=== PATIENT | female | born 1970 | race Caucasian/White ===

== ENCOUNTER 2017-07-13 21:53 | Inpatient (IN) | payer MEDICARE, OTHER ==
[~2017-07-13] VITALS: Ht 165.1 cm; Wt 56.2 kg
[~2017-07-13 21:53] MED LIST: COPAXONE; HUMALOG; HYDR-3326 PO; INSU100V7 SQ; [UNRECOGNIZED DRUG - OTHER]; [UNRECOGNIZED DRUG - REMARK]; [UNRECOGNIZED DRUG - REMARK]; [UNRECOGNIZED DRUG - REMARK] PO
[2017-07-13] MEDS ORDERED: ONDANSETRON 4 MG/2 ML VIAL IV ONE ×2 (22:30→23:45)
[2017-07-13] MEDS ORDERED: HYDROMORPHONE 1 MG/1 ML DISP.SYRIN IV ONE ×2 (22:30→23:45)
[2017-07-13] MEDS ORDERED: IV NORMAL SALINE 1000 ML BAG IV ONE (22:30)
[2017-07-13] MEDS ORDERED: ONDANSETRON 4 MG/2 ML VIAL ONE (22:45)
[2017-07-13] MEDS ORDERED: HYDROMORPHONE 2 MG/1 ML DISP.SYRIN ONE (22:45)
[2017-07-13 23:11] LABS: *BILIRUBIN,URIN NEGATIVE (NEGATIVE); *BLOOD, URINE 2+ (NEGATIVE); *CLARITY,URINE TURBID (CLEAR); *COLOR,URINE YELLOW (YELLOW); *KETONES,URINE NEGATIVE (NEGATIVE); *PROTEIN,URINE 2+ (NEGATIVE); *UROBILINOGEN,URINE 0.2 E.U./dl (NORMAL); LEUKOCYTE ESTERASE ,URINE 3+ (NEGATIVE); NITRITE, URINE POSITIVE (NEGATIVE); PH,URINE 5.5 (5.0-8.0); UGLUCOSE NEGATIVE (NEGATIVE)
[2017-07-13 23:27] LABS: BASOPHILS # (AUTO) 0.1 K/uL (0.0-8.0); BASOPHILS % (AUTO) 0.4 % (0.0-2.0); EOSINOPHILS # (AUTO) 0.4 K/uL (0.0-0.7); EOSINOPHILS % (AUTO) 2.2 % (0.0-7.0); HEMATOCRIT 37.8 % (31.2-41.9); HEMOGLOBIN 12.5 g/dL (10.9-14.3); LYMPHOCYTES # (AUTO) 2.3 K/uL (20.0-40.0); LYMPHOCYTES % (AUTO) 13.8 % (20.5-51.5); MEAN CORPUSCULAR HEMOGLOBIN 30.8 uug (24.7-32.8); MEAN CORPUSCULAR HGB CONC 33 g/dL (32.3-35.6); MEAN CORPUSCULAR VOLUME 93.3 fL (75.5-95.3); MONOCYTES # (AUTO) 1.6 K/uL (2.0-10.0); MONOCYTES % (AUTO) 9.5 % (0.0-11.0); NEUTROPHILS # (AUTO) 12.4 K/uL (1.8-8.9); NEUTROPHILS % (AUTO) 74.1 % (38.5-71.5); PLATELET COUNT (AUTO) 263 K/uL (179-408); RED BLOOD CELL COUNT(AUTO) 4.05 MIL/uL (3.63-4.92); WHITE BLOOD COUNT (AUTO) 16.7 K/uL (3.8-11.8)
[2017-07-13 23:28] LABS: BILIRUBIN,DIRECT 0.1 mg/dL (0.0-0.2); BILIRUBIN,TOTAL 0.3 mg/dL (0.2-1.0); CREATININE 1.6 mg/dL (0.6-1.3); POTASSIUM 4.6 mmol/L (3.5-5.1); TOTAL PROTEIN, SERUM 6.3 g/dL (6.4-8.2)
[2017-07-13] MEDS ORDERED: IV DEXTROSE 5% 500 ML BAG IV ONE (23:30)
[2017-07-13 23:35] LABS: BACTERIA,URINE MANY /HPF (NONE SEEN); SQUAMOUS EPITHELIAL CELL,UR FEW /HPF (NONE SEEN); WBC,URINE TNTC /HPF (0-3)
[2017-07-13] MEDS ORDERED: DEXTROSE 50% 50 ML DISP.SYRIN ONE (23:36)
[2017-07-13] MEDS ORDERED: CEFTRIAXONE 1 G in IV DEXTROSE 5% 50 ML IV ONE (23:45)
[2017-07-13] MEDS ORDERED: diphenhydrAMINE 50 MG/1 ML VIAL IV ONE (23:45)
[2017-07-13] MEDS ORDERED: LEVOFLOXACIN 500 MG/D5W 100ML PIGGYBACK IV ONE (23:45)
[2017-07-14] MEDS ORDERED: diphenhydrAMINE 50 MG/1 ML VIAL ONE (00:01)
[2017-07-14] MEDS ORDERED: ONDANSETRON 4 MG/2 ML VIAL ONE ×2 (00:02→06:26)
[2017-07-14] MEDS ORDERED: CEFTRIAXONE 1 G VIAL ONE (00:02)
[2017-07-14] MEDS ORDERED: HYDROMORPHONE 2 MG/1 ML DISP.SYRIN ONE ×2 (00:03→04:22)
[2017-07-14] MEDS ORDERED: LEVOFLOXACIN 500 MG/D5W 100 ML ONE (01:12)
[2017-07-14 02:06] VITALS: BP 105/68
[2017-07-14] MEDS ORDERED: HYDROCODONE/APAP 5-325MG TABLET PO PRN (02:45)
[2017-07-14] MEDS ORDERED: ACETAMINOPHEN 325 MG TABLET PO PRN (02:45)
[2017-07-14] MEDS ORDERED: MAGNESIUM HYDROXIDE 30 ML LIQUID UDC PO PRN (02:45)
[2017-07-14] MEDS ORDERED: ENOXAPARIN SODIUM 40 MG/0.4 ML DISP.SYRIN SQ SCH (02:45)
[2017-07-14] MEDS ORDERED: ZOLPIDEM 5 MG TABLET PO PRN (02:45)
[2017-07-14] MEDS ORDERED: Z GUARD REMEDY PASTE 57 GM TUBE TOP PRN (02:45)
[2017-07-14] MEDS ORDERED: DEXTROSE 50% 50 ML DISP.SYRIN IV PRN (02:45)
[2017-07-14] MEDS ORDERED: CEFTRIAXONE 1 G in IV DEXTROSE 5% 50 ML IV SCH (03:00)
[2017-07-14] MEDS ORDERED: ENOXAPARIN SODIUM 40 MG/0.4 ML DISP.SYRIN SQ ONE (03:53)
[2017-07-14] MEDS ORDERED: HYDROMORPHONE 1 MG/1 ML DISP.SYRIN IV PRN (04:00)
[2017-07-14] MEDS ORDERED: HYDROCODONE/APAP 5-325MG TABLET ONE (04:10)
[2017-07-14 05:45] VITALS: BP 104/54
[2017-07-14] MEDS: IV NS 1000 ML 1,000 ML IV PRN ×2 (06:07→19:59)
[2017-07-14] MEDS: ONDANSETRON 4 MG/2 ML VIAL IV PRN ×3 (06:13→19:58)
[2017-07-14] MEDS: BLOOD SUGAR DIAGNOSTIC 1 EACH STRIP VI SCH ×4 (06:37→20:05)
[2017-07-14] MEDS ORDERED: INSULIN DETEMIR 300 UNIT/3 ML CARTRIDGE SQ SCH ×2 (09:00→21:00)
[2017-07-14 11:30] VITALS: BP 110/52
[2017-07-14] MEDS: HYDROMORPHONE 2 MG/1 ML DISP.SYRIN IV PRN ×3 (11:50→21:36)
[2017-07-14] MEDS ORDERED: DOXY100C41 PO (12:52)
[2017-07-14] MEDS ORDERED: METO-304 PO (12:52)
[2017-07-14] MEDS ORDERED: CLON1TAB4 PO ×2 (12:52)
[2017-07-14] MEDS ORDERED: ROSU5TAB PO (12:52)
[2017-07-14] MEDS ORDERED: MODA100T29 PO (12:52)
[2017-07-14] MEDS ORDERED: BUPR200T PO (12:52)
[2017-07-14] MEDS ORDERED: TOPI100T38 PO (12:52)
[2017-07-14] MEDS ORDERED: DEXILANT PO (13:21)
[2017-07-14] MEDS: diphenhydrAMINE 50 MG/1 ML VIAL IV PRN ×2 (14:41→21:35)
[2017-07-14 15:40] VITALS: BP 110/66
[2017-07-14] MEDS ORDERED: INSULIN GLARGINE,HUM 300 UNITS/3 ML CARTRIDGE SQ SCH (17:00)
[2017-07-14] MEDS ORDERED: GLAT20SY SQ (17:18)
[2017-07-14] MEDS: PATIENT MAY USE OWN MED- MD OK SQ SCH (17:38)
[2017-07-14] MEDS: LANTUS SQ SCH (17:42)
[2017-07-14] MEDS: INSULIN REGULAR, HUMAN 300 UNIT/3 ML VIAL SQ PRN (18:08)
[2017-07-14] MEDS: CLONAZEPAM 1 MG TABLET PO PRN (19:58)
[2017-07-14] MEDS: DEXILANT PO SCH (19:58)
[2017-07-14] MEDS: buPROPion SR 100 MG TABLET.SA PO SCH (19:58)
[2017-07-14 20:07] VITALS: BP 95/52
[2017-07-14] MEDS: INSULIN REGULAR, HUMAN 300 UNITS/3 ML VIAL SQ PRN (20:10)
[2017-07-14] MEDS ORDERED: buPROPion SR 100 MG TABLET.SA PO SCH (21:00)
[2017-07-15 00:22] VITALS: BP 169/85
[2017-07-15] MEDS: ONDANSETRON 4 MG/2 ML VIAL IV PRN ×2 (01:45→16:36)
[2017-07-15] MEDS: HYDROMORPHONE 2 MG/1 ML DISP.SYRIN IV PRN ×5 (01:46→21:43)
[2017-07-15 04:56] VITALS: BP 95/57
[2017-07-15] MEDS: diphenhydrAMINE 50 MG/1 ML VIAL IV PRN ×3 (05:39→21:38)
[2017-07-15 06:21] LABS: BASOPHILS % (AUTO) 0.2 % (0.0-2.0); EOSINOPHILS # (AUTO) 0.1 K/uL (0.0-0.7); EOSINOPHILS % (AUTO) 1.3 % (0.0-7.0); HEMOGLOBIN 11.3 g/dL (10.9-14.3); LYMPHOCYTES # (AUTO) 1.7 K/uL (20.0-40.0); LYMPHOCYTES % (AUTO) 16.6 % (20.5-51.5); MEAN CORPUSCULAR HEMOGLOBIN 30.6 uug (24.7-32.8); MEAN CORPUSCULAR HGB CONC 32 g/dL (32.3-35.6); MEAN CORPUSCULAR VOLUME 95.3 fL (75.5-95.3); MONOCYTES # (AUTO) 1.1 K/uL (2.0-10.0); MONOCYTES % (AUTO) 10.6 % (0.0-11.0); NEUTROPHILS # (AUTO) 7.1 K/uL (1.8-8.9); NEUTROPHILS % (AUTO) 71.3 % (38.5-71.5); PLATELET COUNT (AUTO) 247 K/uL (179-408); RED BLOOD CELL COUNT(AUTO) 3.68 MIL/uL (3.63-4.92)
[2017-07-15] MEDS: DEXILANT PO SCH (06:22)
[2017-07-15] MEDS: BLOOD SUGAR DIAGNOSTIC 1 EACH STRIP VI SCH ×4 (06:24→20:35)
[2017-07-15 06:51] LABS: BILIRUBIN,TOTAL 0.4 mg/dL (0.2-1.0); CREATININE 1.6 mg/dL (0.6-1.3); MAGNESIUM 1.6 mg/dL (1.8-2.4); PHOSPHOROUS 3.4 mg/dL (2.5-4.9); POTASSIUM 5.1 mmol/L (3.5-5.1); TOTAL PROTEIN, SERUM 5.2 g/dL (6.4-8.2)
[2017-07-15 06:58] LABS: THYROID STIMULATING HORMONE 2.396 mIU/mL (0.358-3.740)
[2017-07-15] MEDS: INSULIN REGULAR, HUMAN 300 UNIT/3 ML VIAL SQ PRN ×3 (07:45→16:27)
[2017-07-15] MEDS: CEFTRIAXONE 1 G in IV DEXTROSE 5% 50 ML IV SCH (08:35)
[2017-07-15] MEDS: buPROPion SR 100 MG TABLET.SA PO SCH ×2 (08:36→16:23)
[2017-07-15] MEDS: CLONAZEPAM 1 MG TABLET PO PRN (08:44)
[2017-07-15] MEDS ORDERED: BUPROPION HCL 400 MG PO SCH (09:00)
[2017-07-15] MEDS ORDERED: ENOXAPARIN SODIUM 40 MG/0.4 ML DISP.SYRIN SQ SCH (09:00)
[2017-07-15] MEDS: PATIENT MAY USE OWN MED- MD OK SQ SCH (09:26)
[2017-07-15] MEDS: LANTUS SQ SCH ×2 (09:27→16:23)
[2017-07-15] MEDS: IV NS 1000 ML 1,000 ML IV PRN ×2 (10:03→23:51)
[2017-07-15] MEDS ORDERED: MAGNESIUM OXIDE 400 MG TABLET PO ONE (10:15)
[2017-07-15 11:04] VITALS: BP 103/59
[2017-07-15 14:58] VITALS: BP 98/59
[2017-07-15] MEDS: TOPIRAMATE 100 MG TABLET PO SCH (16:23)
[2017-07-15] MEDS ORDERED: CLONAZEPAM 1 MG TABLET PO SCH (17:14)
[2017-07-15 20:00] VITALS: BP 95/55
[2017-07-15] MEDS ORDERED: NYSTATIN CREAM 30 GM TUBE TOP SCH (21:00)
[2017-07-15] MEDS: FLUCONAZOLE 100 MG TABLET PO SCH (21:27)
[2017-07-15] MEDS: MICONAZOLE NITRATE 2% VAG CREA 45 GM TUBE VG SCH (22:11)
[2017-07-16 06:38] VITALS: BP 105/59
[2017-07-16] MEDS: BLOOD SUGAR DIAGNOSTIC 1 EACH STRIP VI SCH ×5 (06:43→21:19)
[2017-07-16] MEDS: DEXILANT PO SCH (07:00)
[2017-07-16] MEDS: INSULIN REGULAR, HUMAN 300 UNIT/3 ML VIAL SQ PRN ×2 (07:54→11:49)
[2017-07-16] MEDS: CEFTRIAXONE 1 G in IV DEXTROSE 5% 50 ML IV SCH (08:07)
[2017-07-16] MEDS: TOPIRAMATE 100 MG TABLET PO SCH (08:07)
[2017-07-16] MEDS: ONDANSETRON 4 MG/2 ML VIAL IV PRN ×2 (08:08→21:39)
[2017-07-16] MEDS: buPROPion SR 100 MG TABLET.SA PO SCH ×2 (08:08→17:00)
[2017-07-16] MEDS: FLUCONAZOLE 100 MG TABLET PO SCH (08:08)
[2017-07-16] MEDS: HYDROMORPHONE 2 MG/1 ML DISP.SYRIN IV PRN ×3 (08:09→21:38)
[2017-07-16] MEDS: LANTUS SQ SCH ×2 (08:16→17:00)
[2017-07-16] MEDS: PATIENT MAY USE OWN MED- MD OK SQ SCH (08:25)
[2017-07-16 08:54] LABS: BASOPHILS % (AUTO) 0.3 % (0.0-2.0); EOSINOPHILS # (AUTO) 0.2 K/uL (0.0-0.7); EOSINOPHILS % (AUTO) 2.2 % (0.0-7.0); HEMATOCRIT 35.5 % (37-47); HEMOGLOBIN 11.2 G/DL (12.0-16.0); LYMPHOCYTES % (AUTO) 24.5 % (20.5-51.5); MEAN CORPUSCULAR HEMOGLOBIN 30.1 UUG (27.0-31.0); MEAN CORPUSCULAR HGB CONC 32 g/dL (32.0-37.0); MONOCYTES # (AUTO) 0.6 K/UL (0.1-1.30); NEUTROPHILS # (AUTO) 5.3 K/UL (1.8-8.9); PLATELET COUNT (AUTO) 293 K/UL (150-450); RED BLOOD CELL COUNT(AUTO) 3.73 MIL/UL (4.2-5.4); WHITE BLOOD COUNT (AUTO) 8.1 K/UL (4.0-11.2)
[2017-07-16 10:06] VITALS: BP 104/65
[2017-07-16 10:15] LABS: CREATININE 1.9 mg/dL (0.6-1.3); MAGNESIUM 1.8 mg/dL (1.8-2.4); POTASSIUM 4.7 mmol/L (3.5-5.1)
[2017-07-16] MEDS: CLONAZEPAM 1 MG TABLET PO PRN (11:51)
[2017-07-16] MEDS: IV NS 1000 ML 1,000 ML IV PRN (14:10)
[2017-07-16 17:10] VITALS: BP 133/78
[2017-07-16 20:13] VITALS: BP 99/51
[2017-07-16] MEDS ORDERED: MICONAZOLE NITRATE 2% VAG CREA 45 GM TUBE VG SCH (21:00)
[2017-07-16] MEDS: MICONAZOLE NITRATE 2% VAG CREA 45 GM TUBE VG SCH (21:17)
[2017-07-16] MEDS: diphenhydrAMINE 50 MG/1 ML VIAL IV PRN (21:39)
[2017-07-16] MEDS: INSULIN REGULAR, HUMAN 300 UNITS/3 ML VIAL SQ PRN (21:48)
[2017-07-17] MEDS: IV NS 1000 ML 1,000 ML IV PRN (04:22)
[2017-07-17 04:35] VITALS: BP 109/57
[2017-07-17] MEDS: DEXILANT PO SCH (06:30)
[2017-07-17] MEDS: BLOOD SUGAR DIAGNOSTIC 1 EACH STRIP VI SCH ×3 (06:33→16:42)
[2017-07-17] MEDS: HYDROMORPHONE 2 MG/1 ML DISP.SYRIN IV PRN ×3 (06:59→16:10)
[2017-07-17] MEDS: ONDANSETRON 4 MG/2 ML VIAL IV PRN ×2 (06:59→15:02)
[2017-07-17] MEDS: diphenhydrAMINE 50 MG/1 ML VIAL IV PRN (06:59)
[2017-07-17 07:54] LABS: CREATININE 1.5 mg/dL (0.6-1.3); POTASSIUM 5.1 mmol/L (3.5-5.1)
[2017-07-17 07:59] LABS: BASOPHILS % (AUTO) 0.4 % (0.0-2.0); EOSINOPHILS # (AUTO) 0.2 K/uL (0.0-0.7); EOSINOPHILS % (AUTO) 2.5 % (0.0-7.0); HEMATOCRIT 36.3 % (31.2-41.9); HEMOGLOBIN 11.7 g/dL (10.9-14.3); LYMPHOCYTES # (AUTO) 1.7 K/uL (20.0-40.0); MEAN CORPUSCULAR HEMOGLOBIN 30.6 uug (24.7-32.8); MEAN CORPUSCULAR HGB CONC 32 g/dL (32.3-35.6); MEAN CORPUSCULAR VOLUME 94.4 fL (75.5-95.3); MONOCYTES # (AUTO) 0.4 K/uL (2.0-10.0); MONOCYTES % (AUTO) 7.3 % (0.0-11.0); NEUTROPHILS # (AUTO) 3.9 K/uL (1.8-8.9); NEUTROPHILS % (AUTO) 62.8 % (38.5-71.5); PLATELET COUNT (AUTO) 288 K/uL (179-408); RED BLOOD CELL COUNT(AUTO) 3.84 MIL/uL (3.63-4.92); WHITE BLOOD COUNT (AUTO) 6.2 K/uL (3.8-11.8)
[2017-07-17] MEDS: LANTUS SQ SCH ×2 (08:26→17:10)
[2017-07-17] MEDS: INSULIN REGULAR, HUMAN 300 UNITS/3 ML VIAL SQ PRN (08:26)
[2017-07-17] MEDS: buPROPion SR 100 MG TABLET.SA PO SCH ×2 (08:35→17:09)
[2017-07-17] MEDS: TOPIRAMATE 100 MG TABLET PO SCH (08:36)
[2017-07-17] MEDS: FLUCONAZOLE 100 MG TABLET PO SCH (08:36)
[2017-07-17] MEDS: CEFTRIAXONE 1 G in IV DEXTROSE 5% 50 ML IV SCH (08:37)
[2017-07-17] MEDS: CLONAZEPAM 1 MG TABLET PO PRN (08:38)
[2017-07-17] MEDS: PATIENT MAY USE OWN MED- MD OK SQ SCH (09:00)
[2017-07-17] MEDS ORDERED: HYDR-548 PO (10:38)
[2017-07-17] MEDS ORDERED: LEVO500T90 PO (10:38)
[2017-07-17 11:17] VITALS: BP 102/49
[2017-07-17] MEDS: INSULIN REGULAR, HUMAN 300 UNIT/3 ML VIAL SQ PRN ×2 (11:57→16:44)
[2017-07-17 15:54] VITALS: BP 98/54
== END 2017-07-17 17:30 | disposition home or self-care (01) | DRG 871 ==
LOC: ER 21:55 → MED 07-14 01:14
PROVIDERS: ADMIT Internal Medicine; ATTEND Internal Medicine
DX: A41.9 Sepsis, unspecified organism (principal); N17.0 Acute kidney failure with tubular necrosis; N12 Tubulo-interstitial nephritis, not specified as acute or chronic; N39.0 Urinary tract infection, site not specified; G35 Multiple sclerosis; F32.9 Major depressive disorder, single episode, unspecified; I12.9 Hypertensive chronic kidney disease with stage 1 through stage 4 chronic kidney disease, or unspecified chronic kidney disease; N18.9 Chronic kidney disease, unspecified; G89.4 Chronic pain syndrome; Z87.11 Personal history of peptic ulcer disease; Z87.440 Personal history of urinary (tract) infections; Z87.891 Personal history of nicotine dependence; F41.9 Anxiety disorder, unspecified; B96.20 Unspecified Escherichia coli [E. coli] as the cause of diseases classified elsewhere; E10.22 Type 1 diabetes mellitus with diabetic chronic kidney disease; E10.42 Type 1 diabetes mellitus with diabetic polyneuropathy; Z79.4 Long term (current) use of insulin; K29.50 Unspecified chronic gastritis without bleeding; Z91.81 History of falling
CPT/HCPCS: 36415; 73590; 76770; 83735; 84100; 84443; 84703; 85025; 87040; 87077; 87086; A4663; J0696; J1170; J1200; J1650; J1815; J1956; J2405; J3490; J7030; J7060

== ENCOUNTER 2017-10-03 16:37 | Emergency (ER) | payer MEDICARE, OTHER ==
[~2017-10-03] VITALS: Ht 162.6 cm; Wt 51.3 kg
[~2017-10-03 16:37] MED LIST changes: +BUPR200T PO; +CLON1TAB4 PO; -COPAXONE; +DEXILANT PO; +GLAT20SY SQ; +HYDR-548 PO; +LEVO500T90 PO; +METO-357 PO; +MODA100T29 PO; +ROSU5TAB PO; +TOPI100T38 PO; -[UNRECOGNIZED DRUG - OTHER]; -[UNRECOGNIZED DRUG - REMARK]; -[UNRECOGNIZED DRUG - REMARK]; -[UNRECOGNIZED DRUG - REMARK] PO
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
[2017-10-03 19:07] VITALS: BP 110/79
== END 2017-10-03 19:08 | disposition home or self-care (01) ==
LOC: ER 16:39
DX: S92.532A Displaced fracture of distal phalanx of left lesser toe(s), initial encounter for closed fracture (principal); E10.9 Type 1 diabetes mellitus without complications; G35 Multiple sclerosis; Z79.4 Long term (current) use of insulin; Z88.1 Allergy status to other antibiotic agents; Z88.5 Allergy status to narcotic agent; Z90.49 Acquired absence of other specified parts of digestive tract; X58.XXXA Exposure to other specified factors, initial encounter; Y93.89 Activity, other specified; Y92.89 Other specified places as the place of occurrence of the external cause; Y99.8 Other external cause status
CPT/HCPCS: 73630; A4663

== ENCOUNTER 2017-11-26 09:59 | Emergency (ER) | payer OTHER ==
[~2017-11-26] VITALS: Ht 162.6 cm; Wt 52.2 kg
[2017-11-26 10:33] LABS: *BILIRUBIN,URIN NEGATIVE (NEGATIVE); *BLOOD, URINE 2+ (NEGATIVE); *CLARITY,URINE TURBID (CLEAR); *COLOR,URINE YELLOW (YELLOW); *KETONES,URINE NEGATIVE (NEGATIVE); *PROTEIN,URINE 2+ (NEGATIVE); *UROBILINOGEN,URINE 0.2 E.U./dl (NORMAL); LEUKOCYTE ESTERASE ,URINE 2+ (NEGATIVE); NITRITE, URINE NEGATIVE (NEGATIVE); PH,URINE 5.5 (5.0-8.0); UGLUCOSE NEGATIVE (NEGATIVE)
[2017-11-26 10:44] LABS: BACTERIA,URINE MODERATE /HPF (NONE SEEN); SQUAMOUS EPITHELIAL CELL,UR FEW /HPF (NONE SEEN); WBC,URINE TNTC /HPF (0-3)
[2017-11-26] MEDS ORDERED: IV NORMAL SALINE 1000 ML BAG IV ONE (10:45)
[2017-11-26] MEDS ORDERED: GENTAMICIN SULFATE INJ 80 MG in IV DEXTROSE 5% 100 ML IV ONE (10:45)
[2017-11-26] MEDS ORDERED: CEFEPIME HCL 1 G in IV DEXTROSE 5% 50 ML IV ONE (10:45)
[2017-11-26] MEDS ORDERED: KETAMINE HCL 500 MG/10 ML INJ IV ONE ×2 (10:45→13:30)
[2017-11-26 11:02] LABS: BASOPHILS # (AUTO) 0.1 K/uL (0.0-8.0); BASOPHILS % (AUTO) 0.4 % (0.0-2.0); EOSINOPHILS # (AUTO) 0.3 K/uL (0.0-0.7); EOSINOPHILS % (AUTO) 2.1 % (0.0-7.0); HEMATOCRIT 36.3 % (31.2-41.9); HEMOGLOBIN 12.1 g/dL (10.9-14.3); LYMPHOCYTES # (AUTO) 2.5 K/uL (20.0-40.0); LYMPHOCYTES % (AUTO) 19.4 % (20.5-51.5); MEAN CORPUSCULAR HEMOGLOBIN 30.9 uug (24.7-32.8); MEAN CORPUSCULAR HGB CONC 33 g/dL (32.3-35.6); MONOCYTES # (AUTO) 1.8 K/uL (2.0-10.0); MONOCYTES % (AUTO) 13.5 % (0.0-11.0); NEUTROPHILS # (AUTO) 8.4 K/uL (1.8-8.9); NEUTROPHILS % (AUTO) 64.6 % (38.5-71.5); PLATELET COUNT (AUTO) 309 K/uL (179-408); RED BLOOD CELL COUNT(AUTO) 3.91 MIL/uL (3.63-4.92)
[2017-11-26] MEDS ORDERED: KETAMINE HCL 500 MG/10 ML INJ ONE (11:03)
[2017-11-26] MEDS ORDERED: GENTAMICIN SULFATE 80 MG/2 ML VIAL ONE (11:03)
[2017-11-26] MEDS ORDERED: CEFEPIME HCL 1 G VIAL ONE (11:04)
[2017-11-26 11:07] LABS: CREATININE 1.3 mg/dL (0.6-1.3); POTASSIUM 4.1 mmol/L (3.5-5.1)
[2017-11-26 11:20] LABS: BILIRUBIN,DIRECT 0.1 mg/dL (0.0-0.2); BILIRUBIN,TOTAL 0.2 mg/dL (0.2-1.0); TOTAL PROTEIN, SERUM 5.9 g/dL (6.4-8.2)
[2017-11-26] MEDS ORDERED: BUPR150T5 PO (11:47)
[2017-11-26] MEDS ORDERED: ARIP2TAB3 PO (11:47)
--- NOTE | 2017-11-26 12:44 | NUR ---
PT AMBULATED TO BATH ROOM, REPORTS LOOSE BM FOE THE LAST 2 DAYS. MD NOTIFIED.
[2017-11-26] MEDS ORDERED: DIPHENOXYLATE HCL/ATROP SULF TABLET PO ONE (13:30)
[2017-11-26] MEDS ORDERED: DIPHENOXYLATE HCL/ATROP SULF TABLET ONE (13:33)
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
--- NOTE | 2017-11-26 14:50 | NUR ---
PT RESTING COMFORTABLY WITH EYES CLOSED.
--- NOTE | 2017-11-26 17:00 | NUR ---
TOTAL OF 25 MG OF KETAMIN GIVEN TO PT PER MD ORDER. 475 MG WASTED WITNESSED BY ROSI MONTESINOS.
--- NOTE | 2017-11-26 17:00 | NUR ---
TOTAL OF 25 MG OF KETAMINE GIVEN TO PT PER MD ORDER. 475 MG WASTED WITNESSED BY AKASH MONTESINOS.
[2017-11-26 17:05] VITALS: BP 98/56
--- NOTE | 2017-11-26 17:06 | NUR ---
Patient discharged to home in stable conditon. Written and verbal after care instructions given. Patient verbalizes understanding of instructions. Pt left ER walking in steady gait and denies any distress. She says she has a ride who will pick her up.
[2017-11-26 22:19] LABS: *BILIRUBIN,URIN NEGATIVE (NEGATIVE); *BLOOD, URINE 2+ (NEGATIVE); *CLARITY,URINE CLOUDY (CLEAR); *COLOR,URINE YELLOW (YELLOW); *KETONES,URINE NEGATIVE (NEGATIVE); *PROTEIN,URINE 2+ (NEGATIVE); *UROBILINOGEN,URINE 0.2 E.U./dl (NORMAL); LEUKOCYTE ESTERASE ,URINE 3+ (NEGATIVE); NITRITE, URINE NEGATIVE (NEGATIVE); UGLUCOSE NEGATIVE (NEGATIVE)
[2017-11-26 22:37] LABS: WBC,URINE 80-100 /HPF (0-3)
[2017-11-26 22:38] LABS: BACTERIA,URINE MANY /HPF (NONE SEEN); SQUAMOUS EPITHELIAL CELL,UR MODERATE /HPF (NONE SEEN)
== END 2017-11-26 17:07 | disposition home or self-care (01) ==
LOC: ER 09:59
DX: N12 Tubulo-interstitial nephritis, not specified as acute or chronic (principal); E11.9 Type 2 diabetes mellitus without complications; Z88.1 Allergy status to other antibiotic agents; Z88.5 Allergy status to narcotic agent; Z79.891 Long term (current) use of opiate analgesic; Z79.4 Long term (current) use of insulin; Z79.2 Long term (current) use of antibiotics; Z79.899 Other long term (current) drug therapy
CPT/HCPCS: 36415; 70030-TC; 71045; 76856; 83605; 84703; 85025; 85730; 87040; 87077; 87086; 93005; A4663; J0692; J1580; J3490; J7030

== ENCOUNTER 2018-02-14 17:32 | Emergency (ER) | payer OTHER ==
[~2018-02-14] VITALS: Ht 162.6 cm; Wt 51.3 kg
[~2018-02-14 17:32] MED LIST changes: +ARIP2TAB3 PO; +BUPR150T5 PO; -BUPR200T PO; -CLON1TAB4 PO; -HYDR-548 PO; -LEVO500T90 PO
--- NOTE | 2018-02-14 19:03 | NUR ---
SBAR REPORT TO JASPREET MONTESINOS
--- NOTE | 2018-02-14 19:25 | NUR ---
Dr. Ardon at bedside for MSE.
[2018-02-14] MEDS ORDERED: HYDROMORPHONE 1 MG/1 ML DISP.SYRIN IM ONE (19:45)
[2018-02-14] MEDS ORDERED: ONDANSETRON ODT 4 MG TAB.RAPDIS SL ONE (19:45)
[2018-02-14] MEDS ORDERED: HYDROMORPHONE 1 MG/1 ML DISP.SYRIN IV ONE ×2 (19:45→21:30)
[2018-02-14] MEDS ORDERED: ONDANSETRON ODT 4 MG TAB.RAPDIS ONE (19:48)
[2018-02-14] MEDS ORDERED: HYDROMORPHONE 2 MG/1 ML DISP.SYRIN ONE ×2 (19:48→21:35)
--- NOTE | 2018-02-14 19:55 | NUR ---
Pt out of ER for CT.
--- NOTE | 2018-02-14 20:15 | NUR ---
Patient back to ER from CT.
[2018-02-14] MEDS ORDERED: KETOROLAC TROMETHAMINE 30 MG INJ ONE (21:24)
[2018-02-14] MEDS ORDERED: KETOROLAC TROMETHAMINE 30 MG INJ IVP ONE (21:30)
--- NOTE | 2018-02-14 21:55 | NUR ---
Patient discharged to home in stable conditon. Written and verbal after care instructions given. Patient verbalizes understanding of instructions. Patient out of ER with steady gait, no acute signs of distress, VSS, all belongings taken, IV site discontinued.
[2018-02-14 22:05] VITALS: BP 100/71
== END 2018-02-14 22:06 | disposition home or self-care (01) ==
LOC: ER 17:33
DX: M25.512 Pain in left shoulder (principal); E11.9 Type 2 diabetes mellitus without complications; Z88.1 Allergy status to other antibiotic agents; Z88.5 Allergy status to narcotic agent; Z79.891 Long term (current) use of opiate analgesic; Z79.4 Long term (current) use of insulin; Z79.899 Other long term (current) drug therapy
CPT/HCPCS: 71250; 73000; 73030; A4663; J1170; J1885; Q0162

== ENCOUNTER 2019-07-06 09:34 | Emergency (ER) | payer OTHER, MEDICAID ==
[~2019-07-06] VITALS: Ht 162.6 cm; Wt 53.1 kg
--- NOTE | 2019-07-06 09:41 | NUR ---
Dr Kemp at the [facility] for MSE.
[2019-07-06 09:51] VITALS: BP 109/66
--- NOTE | 2019-07-06 09:51 | NUR ---
Patient discharged to home in stable conditon. Written and verbal after care instructions given. Patient verbalizes understanding of instructions.
== END 2019-07-06 09:55 | disposition home or self-care (01) ==
LOC: ER 09:34
DX: M79.674 Pain in right toe(s) (principal); L08.9 Local infection of the skin and subcutaneous tissue, unspecified; E10.9 Type 1 diabetes mellitus without complications; F32.9 Major depressive disorder, single episode, unspecified; Z88.5 Allergy status to narcotic agent; Z88.1 Allergy status to other antibiotic agents; Z79.899 Other long term (current) drug therapy; Z79.4 Long term (current) use of insulin
CPT/HCPCS: A4663

== ENCOUNTER 2019-09-26 18:09 | Emergency (ER) | payer OTHER, MEDICAID ==
[~2019-09-26] VITALS: Ht 162.6 cm; Wt 52.2 kg
--- NOTE | 2019-09-26 18:40 | NUR ---
Dr Sorto is at bedside, MSE in progress
[2019-09-26 18:44] LABS: *BILIRUBIN,URIN NEGATIVE (NEGATIVE); *BLOOD, URINE 2+ (NEGATIVE); *CLARITY,URINE CLOUDY (CLEAR); *COLOR,URINE YELLOW (YELLOW); *KETONES,URINE NEGATIVE (NEGATIVE); *UROBILINOGEN,URINE 0.2 E.U./dl (NORMAL); NITRITE, URINE POSITIVE (NEGATIVE); PH,URINE 5.5 (5.0-8.0); UGLUCOSE 2+ (NEGATIVE)
[2019-09-26] MEDS ORDERED: HYDROMORPHONE HCL 2 MG TABLET PO ONE ×3 (18:45→21:15)
[2019-09-26] MEDS ORDERED: ONDANSETRON 4 MG/2 ML VIAL IV ONE (18:45)
[2019-09-26] MEDS ORDERED: IV NORMAL SALINE 1000 ML BAG IV ONE (18:45)
[2019-09-26 18:46] LABS: *URINE HCG, QUAL NEGATIVE (NEGATIVE)
[2019-09-26 18:52] LABS: LEUKOCYTE ESTERASE ,URINE 2+ (NEGATIVE)
[2019-09-26] MEDS ORDERED: ONDANSETRON 4 MG/2 ML VIAL ONE (18:52)
[2019-09-26] MEDS ORDERED: HYDROMORPHONE HCL 2 MG TABLET ONE ×3 (18:52→21:17)
[2019-09-26 18:53] LABS: BACTERIA,URINE MANY /HPF (NONE SEEN); SQUAMOUS EPITHELIAL CELL,UR MODERATE /HPF (NONE SEEN); WBC,URINE TNTC /HPF (0-3)
--- NOTE | 2019-09-26 19:07 | NUR ---
Hands off report to YAMEL Nguyen
[2019-09-26 19:19] LABS: BASOPHILS # (AUTO) 0.1 K/uL (0.0-8.0); BASOPHILS % (AUTO) 0.5 % (0.0-2.0); EOSINOPHILS # (AUTO) 0.4 K/uL (0.0-0.7); EOSINOPHILS % (AUTO) 3.7 % (0.0-7.0); HEMATOCRIT 33.9 % (31.2-41.9); HEMOGLOBIN 11.3 g/dL (10.9-14.3); LYMPHOCYTES # (AUTO) 2.2 K/uL (20.0-40.0); LYMPHOCYTES % (AUTO) 21.3 % (20.5-51.5); MEAN CORPUSCULAR HEMOGLOBIN 30.4 uug (24.7-32.8); MEAN CORPUSCULAR HGB CONC 33 g/dL (32.3-35.6); MEAN CORPUSCULAR VOLUME 91.6 fL (75.5-95.3); MONOCYTES # (AUTO) 1.1 K/uL (2.0-10.0); MONOCYTES % (AUTO) 11.2 % (0.0-11.0); NEUTROPHILS # (AUTO) 6.4 K/uL (1.8-8.9); NEUTROPHILS % (AUTO) 63.3 % (38.5-71.5); PLATELET COUNT (AUTO) 316 K/uL (179-408); WHITE BLOOD COUNT (AUTO) 10.1 K/uL (3.8-11.8)
[2019-09-26 19:26] LABS: CARBON DIOXIDE 23 mmol/L (21-32); CHLORIDE 108 mmol/L (98-107); CREATININE 1.6 mg/dL (0.6-1.3); GLUCOSE 192 mg/dL (74-106); POTASSIUM 4.6 mmol/L (3.5-5.1); UREA NITROGEN, BLOOD 18 mg/dL (7-18)
[2019-09-26 19:32] LABS: ALANINE AMINOTRANSFERASE 38 U/L (14-59); ALKALINE PHOSPHATASE 121 U/L (50-136); ASPARTATE AMINOTRANSFERASE 38 U/L (15-37); BILIRUBIN,TOTAL 0.2 mg/dL (0.2-1.0)
[2019-09-26] MEDS ORDERED: CEFTRIAXONE 1 G in IV DEXTROSE 5% 50 ML IV ONE (19:45)
[2019-09-26] MEDS ORDERED: CEFTRIAXONE 1 G VIAL ONE (20:07)
--- NOTE | 2019-09-26 22:01 | NUR ---
IV removed. Catheter intact and site benign. Pressure and 4x4 gauze applied to site. No bleeding noted.
[2019-09-26 22:09] VITALS: BP 99/68
--- NOTE | 2019-09-26 22:09 | NUR ---
Patient discharged to home in stable conditon. Written and verbal after care instructions given. Patient verbalizes understanding of instructions. Walked out of ER with no distress noted.
== END 2019-09-26 22:10 | disposition home or self-care (01) ==
LOC: ER 18:09
DX: N12 Tubulo-interstitial nephritis, not specified as acute or chronic (principal); G89.4 Chronic pain syndrome; E11.9 Type 2 diabetes mellitus without complications; F32.9 Major depressive disorder, single episode, unspecified; Z88.1 Allergy status to other antibiotic agents; Z88.5 Allergy status to narcotic agent; Z79.4 Long term (current) use of insulin; Z79.899 Other long term (current) drug therapy
CPT/HCPCS: 36415; 80053; 81000; 81001; 82009; 82962 ×2; 84703; 85025; 87077; 87086; 87186; 96365; 96375; 99284; J0696; J2405; J7060; A4663; J7030

== ENCOUNTER 2021-06-27 13:50 | Inpatient (IN) | payer OTHER ==
[~2021-06-27] VITALS: Ht 160 cm; Wt 53.7 kg
[2021-06-27] MEDS ORDERED: IV NORMAL SALINE 1000 ML BAG IV ONE ×2 (14:30→16:15)
--- NOTE | 2021-06-27 14:42 | NUR ---
PT IS IN ROOM #1B. DR DANIEL EVALUATED THE PT.
[2021-06-27 14:52] LABS: HEMATOCRIT 27.5 % (31.2-41.9); MEAN CORPUSCULAR HEMOGLOBIN 30.6 uug (24.7-32.8); PLATELET COUNT (AUTO) 349 K/uL (179-408)
[2021-06-27 14:56] LABS: CREATININE 1.9 mg/dL (0.6-1.3)
[2021-06-27 15:02] LABS: BILIRUBIN,DIRECT 0.1 mg/dL (0.0-0.2); BILIRUBIN,TOTAL 0.4 mg/dL (0.2-1.0); TOTAL PROTEIN, SERUM 7.2 g/dL (6.4-8.2)
[2021-06-27] MEDS ORDERED: ONDANSETRON 4 MG/2 ML VIAL IV ONE (15:15)
[2021-06-27] MEDS ORDERED: POTASSIUM CHLORIDE 20 MEQ TAB.PRT.SR PO ONE ×2 (15:15→16:30)
[2021-06-27] MEDS ORDERED: ONDANSETRON 4 MG/2 ML VIAL ONE (15:22)
[2021-06-27] MEDS ORDERED: POTASSIUM CHLORIDE 20 MEQ TAB.PRT.SR ONE ×2 (15:58→16:58)
[2021-06-27 16:28] LABS: *BLOOD, URINE NEGATIVE (NEGATIVE); *COLOR,URINE YELLOW (YELLOW); *KETONES,URINE 1+ (NEGATIVE); *UROBILINOGEN,URINE 0.2 E.U./dl (NORMAL); LEUKOCYTE ESTERASE ,URINE TRACE (NEGATIVE); NITRITE, URINE NEGATIVE (NEGATIVE); PH,URINE 5.5 (5.0-8.0); UGLUCOSE NEGATIVE (NEGATIVE)
[2021-06-27] MEDS ORDERED: CEFTRIAXONE 1 G in IV DEXTROSE 5% 50 ML IV ONE (16:30)
[2021-06-27 16:31] LABS: *BILIRUBIN,URIN 1+ (NEGATIVE)
[2021-06-27 16:35] LABS: *CLARITY,URINE SLIGHTLY CLOUDY (CLEAR); BACTERIA,URINE MODERATE /HPF (NONE SEEN); RBC,URINE 0-3 /HPF (0-3); SQUAMOUS EPITHELIAL CELL,UR MANY /HPF (NONE SEEN)
[2021-06-27] MEDS ORDERED: CEFTRIAXONE /D5W 50ML IVPB **ER PYXIS IV ONE (16:59)
[2021-06-27] MEDS ORDERED: POTASSIUM CHLORIDE 10 MEQ in IV NS 1000 ML 1,000 ML IV PRN (17:15)
[2021-06-27] MEDS ORDERED: LABETALOL HCL 100 MG/20 ML VIAL IV PRN (17:45)
[2021-06-27] MEDS ORDERED: hydrALAZINE HCL 20 MG/1 ML VIAL IV PRN (17:45)
[2021-06-27] MEDS ORDERED: IV 0.9% SODIUM CHLORID+ 20 KCL 1,000 ML IV SCH (17:45)
[2021-06-27] MEDS ORDERED: CEFTRIAXONE 2 G in IV DEXTROSE 5% 100 ML IV SCH (17:45)
[2021-06-27] MEDS ORDERED: MORPHINE SULFATE 2 MG/1 ML DISP.SYRIN IV PRN (17:45)
[2021-06-27] MEDS ORDERED: DEXTROSE 50% 50 ML DISP.SYRIN IV PRN (18:00)
[2021-06-27] MEDS ORDERED: IV NS 1000 ML 1,000 ML IV ONE (18:00)
[2021-06-27] MEDS ORDERED: IV 0.9% SODIUM CHLORID+ 20 KCL 1,000 ML ONE (18:08)
[2021-06-27] MEDS: BLOOD SUGAR DIAGNOSTIC 1 EACH STRIP VI SCH ×2 (18:14→21:11)
[2021-06-27 19:13] LABS: HEMATOCRIT 24.3 % (31.2-41.9); MEAN CORPUSCULAR HEMOGLOBIN 30.1 uug (24.7-32.8); MEAN CORPUSCULAR VOLUME 91.1 fL (75.5-95.3); PLATELET COUNT (AUTO) 322 K/uL (179-408)
[2021-06-27 19:17] LABS: CREATININE 1.5 mg/dL (0.6-1.3); POTASSIUM 3.5 mmol/L (3.5-5.1)
--- NOTE | 2021-06-27 19:20 | NUR ---
Received report from day shift YAMEL Fuentes
[2021-06-27 19:22] LABS: BILIRUBIN,TOTAL 0.3 mg/dL (0.2-1.0); TOTAL PROTEIN, SERUM 6.1 g/dL (6.4-8.2)
--- NOTE | 2021-06-27 19:34 | NUR ---
Blood Sugar 219 w/ POC check
--- NOTE | 2021-06-27 20:17 | NUR ---
Report given to Ciara MONTESINOS - all questions answered
--- NOTE | 2021-06-27 20:18 | NUR ---
RECEIVED PT FROM ER VIA MORTEZA. DX: DEHYDRATION/UTI. UNDER THE CARE OF DR. GUERRERO. PENITENTIARY ASSESSMENT DONE. BELONGING LIST DONE.ADMISSION PROCESS AND CARE PLAN INITIATED. SAFETY AND COMFORT PROVIDED. WILL CONTINUE TO MONITOR.
[2021-06-27 20:20] VITALS: BP 111/45
--- NOTE | 2021-06-27 20:48 | NUR ---
Patient transferred to Room 310 in stable condition- nurse received patient. All belongings w/ patient.
[2021-06-27] MEDS: INSULIN REGULAR, HUMAN 300 UNITS/3 ML VIAL SQ PRN (21:16)
[2021-06-27] MEDS: INSULIN GLARGINE,HUM 300 UNITS/3 ML CARTRIDGE SQ SCH (21:16)
[2021-06-27] MEDS: HYDROCODONE/APAP 5-325MG TABLET PO PRN (21:48)
--- NOTE | 2021-06-27 22:48 | NUR ---
NORCO 5-325MG PRN GIVEN AT 2148H FOR PAIN. PT TOLERATED IT WELL, AFTER AN HOUR PT STATED SHE FEELS BETTER. PT STABLE AND IN NO ACUTE DISTRESS. WILL CONTINUE TO MONITOR.
[2021-06-28 00:10] VITALS: BP 90/50
[2021-06-28 04:00] VITALS: BP 116/58
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
[2021-06-28] MEDS ORDERED: CEFTRIAXONE 2 G in IV DEXTROSE 5% 100 ML IV SCH (06:00)
[2021-06-28] MEDS: HYDROCODONE/APAP 5-325MG TABLET PO PRN ×3 (06:09→23:20)
--- NOTE | 2021-06-28 06:13 | NUR ---
OBSERVED TWO LOOSE WATERY STOOL FOR THE PT. TOLD PT THAT WE NEED 2 MORE WATERY STOOL AND WE WILL COLLECT IT TO CHECK FOR CDIFF. PUT A HAT ON TOILET BOWL. NORCO PRN GIVEN FOR 8/10 PAIN SCALE. PT TOLERATED IT WELL. BLOOD SUGAR WAS 123. PT IN NO ACUTE DISTRESS. WILL ENDORSE TO INCOMING NURSE.
[2021-06-28] MEDS: BLOOD SUGAR DIAGNOSTIC 1 EACH STRIP VI SCH ×4 (06:36→20:58)
[2021-06-28 07:12] LABS: HEMATOCRIT 25.1 % (31.2-41.9); MEAN CORPUSCULAR HEMOGLOBIN 30.4 uug (24.7-32.8); MEAN CORPUSCULAR VOLUME 92.9 fL (75.5-95.3); PLATELET COUNT (AUTO) 346 K/uL (179-408)
[2021-06-28 07:53] LABS: BILIRUBIN,TOTAL 0.3 mg/dL (0.2-1.0); CREATININE 1.5 mg/dL (0.6-1.3); TOTAL PROTEIN, SERUM 6.5 g/dL (6.4-8.2)
--- NOTE | 2021-06-28 08:00 | NUR ---
AWAKE ALERT AND VERBALLY RESPONSIVE. C/O SEVERE WEAKNESS WILL FOLLOW-UP LABS. SR ON MONITOR
[2021-06-28 08:05] LABS: PHOSPHOROUS 0.8 mg/dL (2.5-4.9)
[2021-06-28] MEDS: INSULIN GLARGINE,HUM 300 UNITS/3 ML CARTRIDGE SQ SCH ×2 (08:38→21:06)
[2021-06-28] MEDS ORDERED: POTASSIUM PHOSPHATE MM 15 MMOL in IV NORMAL SALINE 250 ML IV SCH (08:45)
[2021-06-28] MEDS: IV 1/2NS 1000 ML 1,000 ML IV PRN ×3 (09:22→23:21)
[2021-06-28] MEDS: POTASSIUM PHOSPHATE MM 7.5 MMOL in IV NORMAL SALINE 97.5 ML IV SCH ×2 (10:02→13:03)
[2021-06-28] MEDS: CHOLESTYRAMINE/SUCROSE 4 GM PACKET PO SCH ×2 (10:04→20:52)
[2021-06-28] MEDS: ONDANSETRON 4 MG/2 ML VIAL IV PRN ×2 (11:36→17:06)
[2021-06-28] MEDS: INSULIN REGULAR, HUMAN 300 UNIT/3 ML VIAL SQ PRN ×2 (11:46→16:40)
[2021-06-28 11:57] VITALS: BP 106/57
--- NOTE | 2021-06-28 12:00 | NUR ---
SEEN BY HOSPITALIST AND DR HERNÁNDEZ SEE NOTES. PATIENT STATUS CHANGE TO MEDICAL STATUS
[2021-06-28] MEDS ORDERED: CALC0.253 PO (14:02)
[2021-06-28] MEDS ORDERED: GLAT40SY3 SQ (14:50)
[2021-06-28 16:00] VITALS: BP 99/56
[2021-06-28] MEDS: CEFTRIAXONE 1 G in IV DEXTROSE 5% 50 ML IV SCH (16:16)
[2021-06-28] MEDS: ACETAMINOPHEN 325 MG TABLET PO PRN ×2 (16:17→16:37)
[2021-06-28] MEDS ORDERED: ESTR10TA4 VG (16:40)
[2021-06-28 17:21] LABS: CREATININE 1.4 mg/dL (0.6-1.3); PHOSPHOROUS 1.8 mg/dL (2.5-4.9); POTASSIUM 4.2 mmol/L (3.5-5.1)
--- NOTE | 2021-06-28 18:34 | NUR ---
CONTINUE IVF AND PAIN MANAGEMENT. MEDICATED X2 FOR NAUSEA WITH GOOD RELIEF
[2021-06-28 19:07] LABS: *OCCULT BLOOD STOOL NEGATIVE (NEGATIVE)
--- NOTE | 2021-06-28 19:30 | NUR ---
RECEIVED AWAKE, ALERT AND ORIENTED X4. PT IN NO ACUTE DISTRESS. IV INTACT. SAFETY AND COMFORT PROVIDED. WILL CONTINUE TO MONITOR.
[2021-06-28 20:20] VITALS: BP 97/52
[2021-06-28] MEDS: INSULIN REGULAR, HUMAN 300 UNITS/3 ML VIAL SQ PRN (21:05)
[2021-06-28] MEDS ORDERED: TEMAZEPAM 15 MG CAPSULE PO PRN (21:30)
--- NOTE | 2021-06-29 01:25 | NUR ---
AT 2320H NORCO 5-325MG PRN GIVEN TO PT FOR PAIN. PT TOLERATED IT WELL. AFTER AN HOUR PT MORE COMFORTABLE AND FET BETTER. WILL CONTINUE TO MONITOR.
[2021-06-29 04:20] VITALS: BP 112/58
[2021-06-29] MEDS: ACETAMINOPHEN 325 MG TABLET PO PRN (04:24)
--- NOTE | 2021-06-29 05:02 | NUR ---
PT GIVEN TYLENOL 650 MG PRN FOR 100.6 TEMPERATURE. COOLING MEASURES DONE BUT PT DOESN'T WANT ICE COLD PACK SINCE PT FEEL COLD PER PT.
--- NOTE | 2021-06-29 05:54 | NUR ---
Nasim from Lab called for report regarding blood culture that was taken on 06/27 has gram positive cocci in cluster.
--- NOTE | 2021-06-29 05:55 | NUR ---
Pt temp is 99.9. will continue to monitor.
[2021-06-29] MEDS: IV 1/2NS 1000 ML 1,000 ML IV PRN (06:13)
[2021-06-29] MEDS: HYDROCODONE/APAP 5-325MG TABLET PO PRN ×3 (06:15→18:39)
[2021-06-29] MEDS: BLOOD SUGAR DIAGNOSTIC 1 EACH STRIP VI SCH ×4 (06:36→21:03)
--- NOTE | 2021-06-29 06:45 | NUR ---
Pt in no acute distress.Pt iv intact. Prescribed medication given and pt tolerated it well.Pt afebrile 99.3. Notify Dr. Jones regarding blood cultures has gram positive cocci. Dr. asked if pt has antibiotics. Told Pt is on Rocephin. No new orders . Safety and comfort provided. Will endorse to incoming nurse.
--- NOTE | 2021-06-29 07:00 | NUR ---
ENDORSE TO INCOMING NURSE REGARDING PT DOESN'T WANT ANY INFORMATION TO BE GIVEN TO ANYBODY AND NEED CONSENT FROM HER FIRST.
[2021-06-29 08:29] LABS: CREATININE 1.3 mg/dL (0.6-1.3); POTASSIUM 3.8 mmol/L (3.5-5.1)
[2021-06-29 08:34] LABS: BILIRUBIN,TOTAL 0.3 mg/dL (0.2-1.0); TOTAL PROTEIN, SERUM 5.9 g/dL (6.4-8.2)
[2021-06-29] MEDS: INSULIN GLARGINE,HUM 300 UNITS/3 ML CARTRIDGE SQ SCH ×2 (08:42→21:06)
[2021-06-29] MEDS: CHOLESTYRAMINE/SUCROSE 4 GM PACKET PO SCH ×2 (08:43→21:07)
[2021-06-29 08:50] VITALS: BP 100/48
[2021-06-29 09:02] LABS: HEMATOCRIT 23.1 % (31.2-41.9); MEAN CORPUSCULAR HEMOGLOBIN 30.9 uug (24.7-32.8); MEAN CORPUSCULAR VOLUME 91.7 fL (75.5-95.3); PLATELET COUNT (AUTO) 385 K/uL (179-408)
[2021-06-29] MEDS: ONDANSETRON 4 MG/2 ML VIAL IV PRN (10:11)
[2021-06-29] MEDS: METOCLOPRAMIDE HCL 10 MG/2 ML VIAL IV SCH ×3 (10:13→21:20)
--- NOTE | 2021-06-29 10:20 | NUR ---
TEMP RECTALLY 100.7 DR MILIAN MADE AWARE AND WILL START VACNCO PER PHARMACY TO DOSE
--- NOTE | 2021-06-29 11:24 | NUR ---
patient went to [facility] for ct abdomen without contrast via bed
[2021-06-29] MEDS: VANCOMYCIN IV 1,000 MG in IV DEXTROSE 5% 250 ML IV SCH (11:47)
[2021-06-29 11:52] VITALS: BP 104/54
[2021-06-29] MEDS: INSULIN REGULAR, HUMAN 300 UNIT/3 ML VIAL SQ PRN (12:05)
[2021-06-29] MEDS: CEFTRIAXONE 1 G in IV DEXTROSE 5% 50 ML IV SCH (15:13)
--- NOTE | 2021-06-29 15:41 | NUR ---
PATIENT APPEARS MORE COMFORTABLE AND NO SIGNS OF PAIN. N/V SUBSIDED CLOSELY MONITORED
[2021-06-29 16:05] VITALS: BP 100/56
[2021-06-29 20:20] VITALS: BP 97/51
[2021-06-29] MEDS ORDERED: MODAFINIL 100 MG TABLET PO PRN (21:00)
[2021-06-29] MEDS: INSULIN REGULAR, HUMAN 300 UNITS/3 ML VIAL SQ PRN (21:04)
[2021-06-29] MEDS: PANTOPRAZOLE SODIUM 40 MG VIAL IV SCH (21:20)
--- NOTE | 2021-06-30 00:20 | NUR ---
RECD AWAKE,ALERT AND ORIENTED X4,CONTINENT OF BOTH B/B.NO SIGNS AND SX OF DIABETIC CRISES.RESTED FAIRLY WELL.
[2021-06-30] MEDS: ACETAMINOPHEN 325 MG TABLET PO PRN ×2 (01:16→15:26)
[2021-06-30 04:20] VITALS: BP 98/46
[2021-06-30] MEDS: METOCLOPRAMIDE HCL 10 MG/2 ML VIAL IV SCH ×3 (06:24→22:00)
[2021-06-30] MEDS: BLOOD SUGAR DIAGNOSTIC 1 EACH STRIP VI SCH ×4 (06:32→21:31)
--- NOTE | 2021-06-30 08:00 | NUR ---
Patient received awake, in her bed. Pt's A/O x4. Pt is calm, denies distress. PT c/o being cold, comfort provided.
--- NOTE | 2021-06-30 08:21 | NUR ---
NEEDS ATTENDED TO, DUE MEDS GIVEN, SLEPT ON AND OFF, MEDICATED W/ NORCO 2 X , RELIEF AFFORED.BLADDER SCAN Q 8HOURS NONE NOTED, BS DONE , D50 GIVEN IV FOR BS 54. OBSERVED FOR ANY DIABETIC CRISIS.
[2021-06-30] MEDS: PANTOPRAZOLE SODIUM 40 MG VIAL IV SCH (08:36)
[2021-06-30] MEDS: ARIPIPRAZOLE 2 MG TABLET PO SCH (08:36)
[2021-06-30] MEDS: CHOLESTYRAMINE/SUCROSE 4 GM PACKET PO SCH ×2 (08:36→21:21)
[2021-06-30] MEDS: buPROPion SR 150 MG TABLET.SA PO SCH (08:38)
[2021-06-30] MEDS: METOPROLOL SUCCINATE XL 50 MG TAB.SR.24H PO SCH (08:53)
[2021-06-30] MEDS: TOPIRAMATE 100 MG TABLET PO SCH (08:54)
[2021-06-30] MEDS: CALCITRIOL 0.25 MCG CAPSULE PO SCH (08:54)
[2021-06-30] MEDS: INSULIN GLARGINE,HUM 300 UNITS/3 ML CARTRIDGE SQ SCH ×2 (08:59→21:00)
[2021-06-30] MEDS ORDERED: Medication Not On Formulary EA (Rosuvastatin Calcium (Crestor) 5 MG) PO SCH (09:00)
[2021-06-30] MEDS: ONDANSETRON 4 MG/2 ML VIAL IV PRN (09:02)
[2021-06-30] MEDS: HYDROCODONE/APAP 5-325MG TABLET PO PRN ×3 (09:02→21:17)
[2021-06-30 11:02] VITALS: BP 100/51
[2021-06-30] MEDS: VANCOMYCIN IV 1,000 MG in IV DEXTROSE 5% 250 ML IV SCH (12:38)
--- NOTE | 2021-06-30 13:00 | NUR ---
Patient is picked up by automatic machine attendant to be transported to [facility] for MRI. VS stable, no distress.
[2021-06-30 13:09] LABS: HEMATOCRIT 24.5 % (31.2-41.9); MEAN CORPUSCULAR HEMOGLOBIN 29.6 uug (24.7-32.8); MEAN CORPUSCULAR VOLUME 91.7 fL (75.5-95.3); PLATELET COUNT (AUTO) 419 K/uL (179-408)
[2021-06-30 13:17] LABS: CREATININE 1.3 mg/dL (0.6-1.3); PHOSPHOROUS 2.2 mg/dL (2.5-4.9); POTASSIUM 5.1 mmol/L (3.5-5.1)
[2021-06-30] MEDS ORDERED: GADOTERATE MEGLUMINE 5 MMOL/10 ML VIAL IV ONE (14:48)
[2021-06-30 16:00] VITALS: BP 110/68
--- NOTE | 2021-06-30 16:00 | NUR ---
Patient came back from MRI. Report received from sales and marketing executive, no acute events occurred. Pt is alert, oriented, no distress.
[2021-06-30] MEDS ORDERED: NEUTRA PHOS PACKET PO ONE (16:15)
--- NOTE | 2021-06-30 16:20 | NUR ---
Pt has T of 99.4, states she feels shivers and being uncomfortable. PRN Tylenol 650 mg PO was given at 1536 with good effect, T is 98.4
[2021-06-30] MEDS: MEROPENEM 0.5 G in IV NORMAL SALINE 50 ML IV SCH ×2 (17:25→21:30)
[2021-06-30] MEDS: INSULIN REGULAR, HUMAN 300 UNIT/3 ML VIAL SQ PRN (17:31)
[2021-06-30 18:29] VITALS: BP 92/49
[2021-06-30 20:25] VITALS: BP 101/58
[2021-06-30] MEDS: ATORVASTATIN 10 MG TABLET PO SCH (21:17)
[2021-06-30] MEDS: FERROUS SULFATE 325 MG TABEC PO SCH (22:00)
[2021-06-30 23:45] LABS: BAND % (MANUAL) 4 % (0-10); EOSINOPHILS % (MANUAL) 1 % (0-8); LYMPHOCYTES % (MANUAL) 2 % (20-40); MONOCYTES % (MANUAL) 6 % (2-10); NEUTROPHILS % (MANUAL) 87 % (42-75)
[2021-07-01] VITALS (8 sets, daily range): BP systolic 88–121; BP diastolic 40–86
[2021-07-01] MEDS: MEROPENEM 0.5 G in IV NORMAL SALINE 50 ML IV SCH ×3 (01:00→13:24)
[2021-07-01] MEDS: ACETAMINOPHEN 325 MG TABLET PO PRN ×2 (03:15→14:34)
--- NOTE | 2021-07-01 03:16 | NUR ---
patient has temp 100.1. tylenol 650 mg po given.
[2021-07-01] MEDS: BLOOD SUGAR DIAGNOSTIC 1 EACH STRIP VI SCH ×4 (06:29→20:34)
[2021-07-01] MEDS: METOCLOPRAMIDE HCL 10 MG/2 ML VIAL IV SCH ×2 (06:30→14:25)
[2021-07-01] MEDS: PANTOPRAZOLE SODIUM 40 MG TABLET.DR PO SCH (06:30)
[2021-07-01] MEDS: HYDROCODONE/APAP 5-325MG TABLET PO PRN ×3 (06:38→22:13)
--- NOTE | 2021-07-01 08:00 | NUR ---
Pt received awake, in her bed, A/Ox4. Pt is able to state her needs. Pt reports generalized pain, but does not want medications at this time. Pt is on room air. MIdline is intact. Pt is compliant with her medications. Pt c/o nausea and received PRN Zofran 4 mg IV. Pt was able to eat breakfast. No distress at this time.
--- NOTE | 2021-07-01 08:39 | NUR ---
LATEST TEMP 99.1,ENDORSED TO AM NURSE.
[2021-07-01] MEDS: ARIPIPRAZOLE 2 MG TABLET PO SCH (08:52)
[2021-07-01] MEDS: buPROPion SR 150 MG TABLET.SA PO SCH (08:52)
[2021-07-01] MEDS: CALCITRIOL 0.25 MCG CAPSULE PO SCH (08:52)
[2021-07-01] MEDS: CHOLESTYRAMINE/SUCROSE 4 GM PACKET PO SCH (08:52)
[2021-07-01] MEDS: TOPIRAMATE 100 MG TABLET PO SCH (08:52)
[2021-07-01] MEDS: ONDANSETRON 4 MG/2 ML VIAL IV PRN (08:53)
[2021-07-01] MEDS: INSULIN REGULAR, HUMAN 300 UNIT/3 ML VIAL SQ PRN ×2 (08:54→12:45)
[2021-07-01] MEDS: INSULIN GLARGINE,HUM 300 UNITS/3 ML CARTRIDGE SQ SCH ×2 (08:56→20:59)
[2021-07-01 10:43] LABS: HEMATOCRIT 23.6 % (31.2-41.9); MEAN CORPUSCULAR HEMOGLOBIN 30.3 uug (24.7-32.8); MEAN CORPUSCULAR VOLUME 93.1 fL (75.5-95.3); PLATELET COUNT (AUTO) 515 K/uL (179-408)
[2021-07-01 10:56] LABS: CREATININE 1.5 mg/dL (0.6-1.3); PHOSPHOROUS 2.6 mg/dL (2.5-4.9); POTASSIUM 4.3 mmol/L (3.5-5.1)
[2021-07-01] MEDS: METOPROLOL SUCCINATE XL 50 MG TAB.SR.24H PO SCH (11:57)
[2021-07-01] MEDS: VANCOMYCIN IV 1,000 MG in IV DEXTROSE 5% 250 ML IV SCH (11:57)
[2021-07-01 13:11] LABS: BILIRUBIN,DIRECT 0.1 mg/dL (0.0-0.2); BILIRUBIN,TOTAL 0.2 mg/dL (0.2-1.0)
--- NOTE | 2021-07-01 13:14 | NUR ---
Called Marli from [facility] [phone] regarding transfer. Left a message.
[2021-07-01] MEDS ORDERED: IV 1/2NS 1000 ML 1,000 ML IV ONE (13:15)
[2021-07-01 14:27] LABS: IRON, SERUM 11 ug/dL (50-175)
[2021-07-01 14:40] LABS: FERRITIN 340 ng/mL (8-252)
--- NOTE | 2021-07-01 20:00 | NUR ---
AWAKE,ALERT X4. TEMP 99.6, PENDING BLOOD TRANSFUSION. CALLED DR MARTINEZ ORDERED TO GIVE BLOOD TRANSFUSION TYLENOL GRAINS 10 GIVEN AND BENADRYL 50 MG GIVEN. BLOOD TRANSFUSION [id number] WITH VITAL SIGN STABLE TEMP 98.2 PULSE 85 BP 99/56,
[2021-07-01] MEDS ORDERED: diphenhydrAMINE 50 MG/1 ML VIAL IV ONE (20:45)
[2021-07-01] MEDS: ATORVASTATIN 10 MG TABLET PO SCH (21:53)
[2021-07-02] VITALS (7 sets, daily range): BP systolic 88–124; BP diastolic 48–66
[2021-07-02] MEDS: ONDANSETRON 4 MG/2 ML VIAL IV PRN ×3 (00:37→17:43)
--- NOTE | 2021-07-02 00:45 | NUR ---
BLOOD TRANSFUSION ENDED WITH VITAL SIGNS 98.6 PULSE 79 BP 124/66. PATIENTS COMPLAINING OF TOO COLD , TEMPERATURE TAKEN SEVERAL TIMES 98.6.PT VERY NAUSEASRESTING COMFORTABLY. , VOMITED ZOFRAN 4MG GIVEN AND ROUTINE REGLAN IVP GIVEN PLUS TYLENOL GRAINS 10, FELT BETTER.
[2021-07-02] MEDS: MEROPENEM 0.5 G in IV NORMAL SALINE 50 ML IV SCH ×4 (01:05→21:45)
[2021-07-02] MEDS: IV NS 1000 ML 1,000 ML IV SCH ×3 (01:06→23:34)
[2021-07-02] MEDS: METOCLOPRAMIDE HCL 10 MG/2 ML VIAL IV SCH ×4 (01:08→21:04)
[2021-07-02] MEDS: CALCIUM CARBONATE 500 MG TAB.CHEW PO PRN ×3 (01:09→16:59)
[2021-07-02] MEDS: ACETAMINOPHEN 325 MG TABLET PO PRN ×4 (01:09→18:09)
[2021-07-02] MEDS ORDERED: MAG HYDROX/AL HYDROX/SIMETH 30 ML LIQUID UDC PO PRN (02:15)
[2021-07-02] MEDS: PANTOPRAZOLE SODIUM 40 MG TABLET.DR PO SCH (06:03)
[2021-07-02] MEDS: BLOOD SUGAR DIAGNOSTIC 1 EACH STRIP VI SCH ×4 (06:11→21:04)
[2021-07-02] MEDS ORDERED: IV NORMAL SALINE 500 ML IV ONE (06:30)
--- NOTE | 2021-07-02 06:41 | NUR ---
CALLED DR JACOBSEN FOR BLOOD PRESSURE OF 88/40 NORMAL SALINE BOLUS GIVEN
--- NOTE | 2021-07-02 06:42 | NUR ---
500CC OF NORMAL SALINE
--- NOTE | 2021-07-02 07:30 | NUR ---
scanned Merrem 0.5 g at 5:30, but gave at 07:30
[2021-07-02 08:01] LABS: HEMATOCRIT 26.1 % (31.2-41.9); MEAN CORPUSCULAR HEMOGLOBIN 30.6 uug (24.7-32.8); MEAN CORPUSCULAR VOLUME 93.2 fL (75.5-95.3); PLATELET COUNT (AUTO) 405 K/uL (179-408)
[2021-07-02 08:24] LABS: BILIRUBIN,TOTAL 0.4 mg/dL (0.2-1.0); CREATININE 1.4 mg/dL (0.6-1.3); POTASSIUM 4.4 mmol/L (3.5-5.1); TOTAL PROTEIN, SERUM 5.7 g/dL (6.4-8.2)
[2021-07-02] MEDS: buPROPion SR 150 MG TABLET.SA PO SCH (08:52)
[2021-07-02] MEDS: TOPIRAMATE 100 MG TABLET PO SCH (08:52)
[2021-07-02] MEDS: FERROUS SULFATE 325 MG TABEC PO SCH ×3 (08:52→16:49)
[2021-07-02] MEDS: ARIPIPRAZOLE 2 MG TABLET PO SCH (08:53)
[2021-07-02] MEDS: CALCITRIOL 0.25 MCG CAPSULE PO SCH (08:54)
[2021-07-02] MEDS: METOPROLOL SUCCINATE XL 50 MG TAB.SR.24H PO SCH (08:58)
--- NOTE | 2021-07-02 09:02 | NUR ---
Dr. Crawford on the floor examined the patient with order ok to give am meds, IR will be here for procedure and to give second unit of blood if hgb below 8 noted and carried. Addendum: 07/02/21 at 0948 by JUAN RAINEY RN at this time, also notified of wbc 34 no new orders received.
--- NOTE | 2021-07-02 09:10 | NUR ---
Dr. cummings with order to put on telemetry noted and carried. pt sinus rhythm on tele monitor hr 90.
[2021-07-02] MEDS: INSULIN GLARGINE,HUM 300 UNITS/3 ML CARTRIDGE SQ SCH ×2 (10:02→21:10)
--- NOTE | 2021-07-02 10:03 | NUR ---
received call from lisa galloway. ct guided liver abscess will be done today at 11am. pt is aware.
[2021-07-02] MEDS: VANCOMYCIN IV 1,000 MG in IV DEXTROSE 5% 250 ML IV SCH ×2 (10:54→16:14)
--- NOTE | 2021-07-02 11:13 | NUR ---
picked up by window installation subcontractor for procedure. Addendum: 07/02/21 at 1114 by JUAN RAINEY RN no acute distress.
[2021-07-02] MEDS ORDERED: NALOXONE 2 MG/2 ML SYRINGE IV PRN (11:15)
[2021-07-02] MEDS ORDERED: MIDAZOLAM HCL 10 MG/2 ML VIAL IV PRN (11:15)
[2021-07-02] MEDS ORDERED: FENTANYL CITRATE 250 MCG/5 ML AMPUL IV PRN (11:15)
[2021-07-02 11:43] LABS: BAND % (MANUAL) 3 % (0-10); LYMPHOCYTES % (MANUAL) 2 % (20-40); MONOCYTES % (MANUAL) 2 % (2-10); NEUTROPHILS % (MANUAL) 93 % (42-75)
[2021-07-02] MEDS ORDERED: LIDOCAINE HCL 1% 20 ML VIAL ONE (12:27)
[2021-07-02] MEDS ORDERED: VANCOMYCIN IV 1,000 MG in IV DEXTROSE 5% 250 ML IV SCH (13:00)
--- NOTE | 2021-07-02 13:30 | NUR ---
came back from liver biopsy awake and oriented. received report from suzanne de paz rn. dr. cummings in the room with the patient. noted with dressing on ruq. no bleeding noted. denies pain or sob. dr. meade with order for bed rest for 3 hrs and may resume diet noted and carried. pt is aware. reconnected to tele monitor noted sinus rhythm hr 80s. will cont to monitor.
[2021-07-02] MEDS: INSULIN REGULAR, HUMAN 300 UNIT/3 ML VIAL SQ PRN (16:58)
--- NOTE | 2021-07-02 18:08 | NUR ---
pt vomited. requested for another tylenol. per dr. cummings ok to give.
--- NOTE | 2021-07-02 19:05 | NUR ---
resting in bed no acute distress. no bleeding noted on biopsy site. sinus rhytm on monitor. iv hydration ongoing. on iv atb no adverse/allergic rxn noted. needs attended to. safety measures in place. cont to monitor.
--- NOTE | 2021-07-02 19:30 | NUR ---
RECEIVED PT AWAKE, ALERT AND ORIENTEDX4. PT IN NO ACUTE DISTRESS. IV INTACT. SAFETY AND COMFORT PROVIDED. WILL CONTINUE TO MONITOR.
--- NOTE | 2021-07-02 20:15 | NUR ---
PT WAS TAKEN DOWN TO RADIOLOGY DEPT VIA WHEELCHAIR. PT STABLE.
--- NOTE | 2021-07-02 20:46 | NUR ---
PT IS BACK ON HER ROOM FROM RADIOLOGY DEPARTMENT. PT STABLE . PT HEART MONITOR IN PLACE. IV INTACT. WILL CONRINUE TO MONITOR.
[2021-07-02] MEDS: ATORVASTATIN 10 MG TABLET PO SCH (21:04)
[2021-07-02] MEDS: INSULIN REGULAR, HUMAN 300 UNITS/3 ML VIAL SQ PRN (21:09)
[2021-07-03 00:37] VITALS: BP 92/50
[2021-07-03] MEDS: MEROPENEM 0.5 G in IV NORMAL SALINE 50 ML IV SCH ×3 (05:25→22:01)
[2021-07-03] MEDS: ACETAMINOPHEN 325 MG TABLET PO PRN ×3 (05:26→18:13)
[2021-07-03] MEDS: METOCLOPRAMIDE HCL 10 MG/2 ML VIAL IV SCH ×3 (05:26→21:19)
[2021-07-03] MEDS: PANTOPRAZOLE SODIUM 40 MG TABLET.DR PO SCH (06:30)
[2021-07-03] MEDS: BLOOD SUGAR DIAGNOSTIC 1 EACH STRIP VI SCH ×4 (06:30→21:11)
[2021-07-03 06:37] VITALS: BP 98/46
--- NOTE | 2021-07-03 06:52 | NUR ---
PT SLEPT INTERMITTENTLY. IV INTACT. PT GIVEN TYLENOL AT 0526H FOR PAIN. PT TOLERATED IT WELL. PT STABLE. SAFETY AND COMFORT PROVIDED. ALL NEEDS ARE MET. WILL ENDORSE TO INCOMING NURSE FOR CONTINUITY OF CARE.
[2021-07-03 07:23] LABS: HEMATOCRIT 25.2 % (31.2-41.9); MEAN CORPUSCULAR VOLUME 92.4 fL (75.5-95.3); PLATELET COUNT (AUTO) 380 K/uL (179-408)
--- NOTE | 2021-07-03 07:30 | NUR ---
received pt alert and oriented x4. no resp distress. iv hydration ongoing. safety measures in place. comfortable. will cont to monitor.
[2021-07-03 07:36] LABS: BILIRUBIN,TOTAL 0.3 mg/dL (0.2-1.0); CREATININE 1.3 mg/dL (0.6-1.3); TOTAL PROTEIN, SERUM 5.2 g/dL (6.4-8.2)
--- NOTE | 2021-07-03 07:48 | NUR ---
received albumin lab result relayed to dr. cummings no new order received at this time.
[2021-07-03 08:33] LABS: MAGNESIUM 1.3 mg/dL (1.8-2.4)
[2021-07-03] MEDS: METOPROLOL SUCCINATE XL 50 MG TAB.SR.24H PO SCH (09:00)
[2021-07-03] MEDS: IV 1/2NS 1000 ML 1,000 ML IV SCH ×2 (09:15→22:01)
[2021-07-03] MEDS: INSULIN GLARGINE,HUM 300 UNITS/3 ML CARTRIDGE SQ SCH ×2 (09:16→21:18)
[2021-07-03] MEDS: buPROPion SR 150 MG TABLET.SA PO SCH (09:19)
[2021-07-03] MEDS: FERROUS SULFATE 325 MG TABEC PO SCH ×3 (09:19→18:13)
[2021-07-03] MEDS: CALCITRIOL 0.25 MCG CAPSULE PO SCH (09:19)
[2021-07-03] MEDS: ARIPIPRAZOLE 2 MG TABLET PO SCH (09:19)
[2021-07-03] MEDS: TOPIRAMATE 100 MG TABLET PO SCH (09:19)
[2021-07-03] MEDS: MAGNESIUM OXIDE 400 MG TABLET PO SCH ×2 (10:18→21:22)
[2021-07-03] MEDS: ALBUMIN HUMAN 25% 100 ML IV SCH ×2 (10:34→11:36)
--- NOTE | 2021-07-03 11:33 | NUR ---
bladder scan done noted 128
[2021-07-03 12:00] VITALS: BP 113/52
[2021-07-03] MEDS: INSULIN REGULAR, HUMAN 300 UNIT/3 ML VIAL SQ PRN (12:13)
--- NOTE | 2021-07-03 12:16 | NUR ---
received call from martita scheduled for lumbar puncture tomorrow 8am npo after midnight. dr. cummings made aware. pt made aware and agreeable.
[2021-07-03] MEDS: ONDANSETRON 4 MG/2 ML VIAL IV PRN ×2 (12:23→17:55)
[2021-07-03] MEDS ORDERED: GLAT40SY3 SQ (12:28)
[2021-07-03] MEDS ORDERED: DEXL60CA3 PO (12:28)
--- NOTE | 2021-07-03 12:46 | NUR ---
spoke with martita at xray said the radiologist spoke with dr. cummings and will hold off on lumbar puncture until after mri is done. pt and family at bedside are made aware.
[2021-07-03 15:30] VITALS: BP 117/57
--- NOTE | 2021-07-03 16:12 | NUR ---
picked up by [facility] at 4pm for scheduled mri at [facility] in stable condition.
--- NOTE | 2021-07-03 16:36 | NUR ---
received call from lab blood culture prelim gram negative rods in anaerobic bottle. relayed to dr. cummings and narciso [place].
[2021-07-03] MEDS ORDERED: NEUTRA PHOS PACKET PO ONE (17:00)
--- NOTE | 2021-07-03 18:04 | NUR ---
back from mri via gurney. in stable condition. sinus rhythm on tele. asking for zofran. per dr. cummings ok to give ahead of schedule.
--- NOTE | 2021-07-03 18:13 | NUR ---
bs 150 mg/dl. pt refused to eat. no coverage given.
--- NOTE | 2021-07-03 18:56 | NUR ---
in bed talking to her mother on the phone. no acute distress. denies pain. tired from mri. iv intact. safety measures kept. needs attended to. cont to monitor.
[2021-07-03] MEDS: VANCOMYCIN IV 1,000 MG in IV DEXTROSE 5% 250 ML IV SCH (20:07)
[2021-07-03 20:38] LABS: BILIRUBIN,TOTAL 0.5 mg/dL (0.2-1.0); CREATININE 1.4 mg/dL (0.6-1.3); POTASSIUM 4.1 mmol/L (3.5-5.1); TOTAL PROTEIN, SERUM 5.9 g/dL (6.4-8.2)
[2021-07-03 20:44] VITALS: BP 100/45
[2021-07-03] MEDS: INSULIN REGULAR, HUMAN 300 UNITS/3 ML VIAL SQ PRN (21:18)
[2021-07-03] MEDS: HYDROCODONE/APAP 5-325MG TABLET PO PRN (21:20)
[2021-07-03] MEDS: ATORVASTATIN 10 MG TABLET PO SCH (21:21)
[2021-07-04 00:05] VITALS: BP 96/48
[2021-07-04 04:44] VITALS: BP 117/51
[2021-07-04] MEDS: METOCLOPRAMIDE HCL 10 MG/2 ML VIAL IV SCH (05:02)
[2021-07-04] MEDS: MEROPENEM 0.5 G in IV NORMAL SALINE 50 ML IV SCH ×3 (05:04→22:37)
[2021-07-04 05:06] LABS: CANCER AG, 125 22.9 U/mL (0.0-38.1); CANCER ANTIGEN 15-3 17.9 U/mL (0.0-25.0); CARBOHYDRATE ANTIGEN, 19-9 7 U/mL (0-35); HEPATITIS B SURFACE AG Negative (Negative)
--- NOTE | 2021-07-04 05:18 | NUR ---
No significant changes overnight. Pt remains AxO x4, able to make needs known. Minimal assist to bedside commode. On RA, NSR on monitor. Continuous IVF running, abx given per order. All needs attended. Call light within reach. Pending results for Breast US and bone scan NM. Plan for possible lumbar puncture in AM.
[2021-07-04] MEDS: PANTOPRAZOLE SODIUM 40 MG TABLET.DR PO SCH (06:02)
[2021-07-04] MEDS: ONDANSETRON 4 MG/2 ML VIAL IV PRN ×2 (06:34→12:17)
[2021-07-04] MEDS: HYDROCODONE/APAP 5-325MG TABLET PO PRN ×2 (06:40→20:20)
[2021-07-04] MEDS: BLOOD SUGAR DIAGNOSTIC 1 EACH STRIP VI SCH ×4 (06:40→20:23)
[2021-07-04 07:20] LABS: HEMATOCRIT 24.4 % (31.2-41.9); MEAN CORPUSCULAR VOLUME 91.9 fL (75.5-95.3); PLATELET COUNT (AUTO) 395 K/uL (179-408)
[2021-07-04 07:36] LABS: BILIRUBIN,TOTAL 0.5 mg/dL (0.2-1.0); CREATININE 1.2 mg/dL (0.6-1.3); PHOSPHOROUS 1.9 mg/dL (2.5-4.9); POTASSIUM 3.6 mmol/L (3.5-5.1); TOTAL PROTEIN, SERUM 5.9 g/dL (6.4-8.2)
--- NOTE | 2021-07-04 08:00 | NUR ---
awake alert/oriented x4, kept npo for lumbar puncture-called xray- will let me know of schedule, explained plan of care, denies of headache, states still has diarrhea with specks of brownish particles, needs attended, safety measures maintained
[2021-07-04 08:06] LABS: *IMMUNOGLOBULIN G, SERUM 1104 mg/dL (586-1602); A/G RATIO 0.6 (0.7-1.7); ALBUMIN 1.7 g/dL (2.9-4.4); ALPHA-1-GLOBULIN 0.3 g/dL (0.0-0.4); ALPHA-2-GLOBULIN 0.9 g/dL (0.4-1.0); BETA GLOBULIN 0.6 g/dL (0.7-1.3); GAMMA GLOBULIN 1.2 g/dL (0.4-1.8); GLOBULIN, TOTAL 2.9 g/dL (2.2-3.9); IMMUNOGLOBULIN A, SERUM 332 mg/dL (87-352); IMMUNOGLOBULIN M, SERUM 90 mg/dL (26-217); M-SPIKE Not Observed g/dL (Not Observed)
[2021-07-04] MEDS: INSULIN GLARGINE,HUM 300 UNITS/3 ML CARTRIDGE SQ SCH ×2 (09:00→20:24)
--- NOTE | 2021-07-04 10:00 | NUR ---
spoke to Dr Pate pradip lumbar puncture- will talk to pt, aware of mri brain and bone scan results
[2021-07-04] MEDS: FERROUS SULFATE 325 MG TABEC PO SCH ×3 (10:11→17:52)
[2021-07-04] MEDS: ARIPIPRAZOLE 2 MG TABLET PO SCH (10:11)
[2021-07-04] MEDS: TOPIRAMATE 100 MG TABLET PO SCH (10:11)
[2021-07-04] MEDS: buPROPion SR 150 MG TABLET.SA PO SCH (10:11)
[2021-07-04] MEDS: CALCITRIOL 0.25 MCG CAPSULE PO SCH (10:11)
[2021-07-04] MEDS: ACETAMINOPHEN 325 MG TABLET PO PRN (10:13)
[2021-07-04] MEDS: METOPROLOL SUCCINATE XL 50 MG TAB.SR.24H PO SCH (10:17)
[2021-07-04] MEDS ORDERED: METOCLOPRAMIDE HCL 10 MG TABLET PO SCH ×2 (11:30)
--- NOTE | 2021-07-04 11:30 | NUR ---
Dr Pate spoke to pt- states will hold on for now re lumbar puncture but to also inform ID- called Kayla Lawson HI LIFT OPERATOR- no lumbar puncture- called [facility] dept and pt informed
[2021-07-04 12:00] VITALS: BP 117/54
[2021-07-04] MEDS: IV 1/2NS 1000 ML 1,000 ML IV SCH (12:06)
--- NOTE | 2021-07-04 12:17 | NUR ---
c/o nausea- medicated with zofran 4 mg iv as prn
[2021-07-04] MEDS: INSULIN REGULAR, HUMAN 300 UNIT/3 ML VIAL SQ PRN ×2 (12:54→17:12)
--- NOTE | 2021-07-04 14:00 | NUR ---
bladder scan done- 95ml obtained
[2021-07-04] MEDS: DEXILANT 60 MG PO SCH (14:24)
[2021-07-04] MEDS: PROCHLORPERAZINE EDISYLATE 10 MG/2 ML VIAL IV PRN (15:59)
[2021-07-04 16:00] VITALS: BP 101/54
[2021-07-04] MEDS ORDERED: NEUTRA PHOS PACKET PO ONE ×2 (16:30)
--- NOTE | 2021-07-04 18:26 | NUR ---
poor appetite, medicated x 2 for nausea this shift, had three diarrheal stools and urinated at the same time, all needs attended and met, no distress noted, call light within reach
--- NOTE | 2021-07-04 20:00 | NUR ---
Received patient lying in bed. AAOx4. In no acute distress. Denies any SOB. Complained of rib cage pain and requesting for [place]. Will provide [place] per order. Right upper arm midline intact and patent. IVF infusing. NSR on tele with HR of 80/min. Needs assessed and attended to. Safety measure initiated and call light within reached.
[2021-07-04 20:15] VITALS: BP 109/62
[2021-07-04] MEDS: ATORVASTATIN 10 MG TABLET PO SCH (20:20)
[2021-07-04] MEDS: SODIUM BICARBONATE 8.4% 50 MEQ in IV 1/2NS 1000 ML 1,000 ML IV PRN (20:57)
[2021-07-04] MEDS: VANCOMYCIN IV 1,000 MG in IV DEXTROSE 5% 250 ML IV SCH (21:02)
[2021-07-05 00:06] VITALS: BP 112/59
[2021-07-05 04:20] VITALS: BP 112/59
--- NOTE | 2021-07-05 06:03 | NUR ---
Patient slept well last night. AAOx4. In no acute distress. Denies any pain or SOB at this time. Right upper arm midline intact and patent. IVF infusing. No adverse reaction noted from IV antibiotics. NSR on tele with HR of 81/min. LBM small amount x2. Needs attended to and met. Safety measure maintained and call light within reached.
[2021-07-05] MEDS: MEROPENEM 0.5 G in IV NORMAL SALINE 50 ML IV SCH ×3 (06:22→21:07)
[2021-07-05] MEDS: DEXILANT 60 MG PO SCH (06:22)
[2021-07-05] MEDS: BLOOD SUGAR DIAGNOSTIC 1 EACH STRIP VI SCH ×4 (06:23→21:06)
[2021-07-05 07:01] LABS: MEAN CORPUSCULAR HEMOGLOBIN 30.7 uug (24.7-32.8); MEAN CORPUSCULAR VOLUME 91.9 fL (75.5-95.3); PLATELET COUNT (AUTO) 407 K/uL (179-408)
[2021-07-05 07:12] LABS: BILIRUBIN,TOTAL 0.5 mg/dL (0.2-1.0); CREATININE 1.2 mg/dL (0.6-1.3); POTASSIUM 3.6 mmol/L (3.5-5.1); TOTAL PROTEIN, SERUM 5.8 g/dL (6.4-8.2)
--- NOTE | 2021-07-05 08:00 | NUR ---
AWAKE ALERT AND ORIENTED X3 NO SS OF DISTRESS BUT MILD GENERALIZED DISCOMFORT. HIGH SCHOOL MATHEMATICS TEACHER CARE DONE
[2021-07-05] MEDS: INSULIN GLARGINE,HUM 300 UNITS/3 ML CARTRIDGE SQ SCH ×2 (08:10→21:09)
[2021-07-05] MEDS: INSULIN REGULAR, HUMAN 300 UNIT/3 ML VIAL SQ PRN ×2 (08:11→21:07)
[2021-07-05] MEDS: buPROPion SR 150 MG TABLET.SA PO SCH (08:14)
[2021-07-05] MEDS: ARIPIPRAZOLE 2 MG TABLET PO SCH (08:14)
[2021-07-05] MEDS: TOPIRAMATE 100 MG TABLET PO SCH (08:14)
[2021-07-05] MEDS: FERROUS SULFATE 325 MG TABEC PO SCH ×3 (08:14→17:00)
[2021-07-05] MEDS: CALCITRIOL 0.25 MCG CAPSULE PO SCH (08:15)
[2021-07-05] MEDS: ONDANSETRON 4 MG/2 ML VIAL IV PRN ×2 (08:29→13:45)
[2021-07-05] MEDS: METOPROLOL SUCCINATE XL 50 MG TAB.SR.24H PO SCH (08:33)
--- NOTE | 2021-07-05 10:00 | NUR ---
SEEN BY SERVICE NOW DEVELOPER FOR DR METZ SEE NOTES
[2021-07-05] MEDS: SODIUM BICARBONATE 8.4% 50 MEQ in IV 1/2NS 1000 ML 1,000 ML IV PRN (11:33)
--- NOTE | 2021-07-05 11:40 | NUR ---
dr patel made aware of sustaining sr on monitor, advised to dc TELE
[2021-07-05 12:00] VITALS: BP 126/68
[2021-07-05] MEDS: HYDROCODONE/APAP 5-325MG TABLET PO PRN ×2 (13:46→21:06)
[2021-07-05 16:00] VITALS: BP 149/62
[2021-07-05] MEDS ORDERED: SODIUM PHOSPHATE MM 15 MMOL in IV NORMAL SALINE 250 ML IV ONE (16:00)
--- NOTE | 2021-07-05 16:57 | NUR ---
patient remains with poor appetite, with 2x episodes of nausea relived wit zofran x2.
[2021-07-05] MEDS: ACETAMINOPHEN 325 MG TABLET PO PRN (17:29)
[2021-07-05] MEDS: PROCHLORPERAZINE EDISYLATE 10 MG/2 ML VIAL IV PRN (17:30)
--- NOTE | 2021-07-05 17:30 | NUR ---
BS 138 PATIENT REFUSED SS AND REFUSED TO EAT. CONTINUE IVF ORDERED
--- NOTE | 2021-07-05 19:30 | NUR ---
Received patient lying in bed. AAOx4. In no acute distress. Denies any pain or SOB at this time. Right upper arm midline intact and patent. IVF infusing. Needs assessed and attended to. Safety measure initiated and call light within reached.
[2021-07-05 20:10] VITALS: BP 111/59
[2021-07-05] MEDS: ATORVASTATIN 10 MG TABLET PO SCH (21:06)
--- NOTE | 2021-07-05 21:25 | NUR ---
Elicia Madrigal at bedside.
[2021-07-05] MEDS: METRONIDAZOLE 500 MG TABLET PO SCH (21:45)
[2021-07-06] MEDS: VANCOMYCIN IV 1,000 MG in IV DEXTROSE 5% 250 ML IV SCH (00:20)
[2021-07-06 04:15] VITALS: BP 113/62
[2021-07-06] MEDS: MEROPENEM 0.5 G in IV NORMAL SALINE 50 ML IV SCH ×3 (06:01→21:06)
[2021-07-06] MEDS: METRONIDAZOLE 500 MG TABLET PO SCH ×3 (06:01→21:06)
[2021-07-06] MEDS: DEXILANT 60 MG PO SCH (06:01)
[2021-07-06] MEDS: HYDROCODONE/APAP 5-325MG TABLET PO PRN ×2 (06:04→20:01)
[2021-07-06] MEDS: SODIUM BICARBONATE 8.4% 50 MEQ in IV 1/2NS 1000 ML 1,000 ML IV PRN ×2 (06:15→18:32)
[2021-07-06] MEDS: BLOOD SUGAR DIAGNOSTIC 1 EACH STRIP VI SCH ×4 (06:31→20:02)
[2021-07-06 07:19] LABS: HEMATOCRIT 24.2 % (31.2-41.9); MEAN CORPUSCULAR HEMOGLOBIN 29.9 uug (24.7-32.8); MEAN CORPUSCULAR VOLUME 91.7 fL (75.5-95.3); PLATELET COUNT (AUTO) 390 K/uL (179-408)
[2021-07-06 07:33] LABS: BILIRUBIN,TOTAL 0.5 mg/dL (0.2-1.0); CREATININE 1.1 mg/dL (0.6-1.3); POTASSIUM 3.6 mmol/L (3.5-5.1); TOTAL PROTEIN, SERUM 5.6 g/dL (6.4-8.2)
[2021-07-06] MEDS ORDERED: GLATIRAMER ACETATE 40 MG/ML SQ SCH (09:00)
[2021-07-06] MEDS: ARIPIPRAZOLE 2 MG TABLET PO SCH (09:06)
[2021-07-06] MEDS: TOPIRAMATE 100 MG TABLET PO SCH (09:07)
[2021-07-06] MEDS: buPROPion SR 150 MG TABLET.SA PO SCH (09:07)
[2021-07-06] MEDS: FERROUS SULFATE 325 MG TABEC PO SCH ×3 (09:07→17:31)
[2021-07-06] MEDS: METOPROLOL SUCCINATE XL 50 MG TAB.SR.24H PO SCH (09:08)
[2021-07-06] MEDS: CALCITRIOL 0.25 MCG CAPSULE PO SCH (09:10)
[2021-07-06] MEDS: INSULIN GLARGINE,HUM 300 UNITS/3 ML CARTRIDGE SQ SCH ×2 (09:11→20:03)
[2021-07-06] MEDS: PROCHLORPERAZINE EDISYLATE 10 MG/2 ML VIAL IV PRN ×2 (09:16→17:43)
[2021-07-06] MEDS: INSULIN REGULAR, HUMAN 300 UNIT/3 ML VIAL SQ PRN ×3 (11:07→20:02)
[2021-07-06 11:15] VITALS: BP 104/57
[2021-07-06] MEDS: ONDANSETRON 4 MG/2 ML VIAL IV PRN (13:04)
[2021-07-06 15:10] VITALS: BP 100/51
[2021-07-06] MEDS: ACETAMINOPHEN 325 MG TABLET PO PRN (15:27)
--- NOTE | 2021-07-06 16:40 | NUR ---
Pt is a/o x 4, pt continues to have loose stools. [facility] positive for campylobacter bacteria. MD was attempted to be reached, no response. Charge nurse notified. pt has been provided with comfort measures, call light is within reach. Pt is compliant with medications and did not refuse insulin coverage today for 1130 or 1630. Will endorse pt to wellness director.
--- NOTE | 2021-07-06 18:09 | NUR ---
Notified ID Dr. Garza of stool culture results.
--- NOTE | 2021-07-06 19:00 | NUR ---
Per ID Dr. Garza, placed order for zythromax for stool campylobacter. MD notifed of all other antibiotics (Merrem, Vanco,and Flagyl), also notified of pt allergy to erythromycin. Endorsed pt to kiln mechanic.
--- NOTE | 2021-07-06 19:41 | NUR ---
Received patient lying in bed. AAOx4. In no apparent distress. Denies any pain or SOB at this time. Right upper arm midline remains intact and patent. IVF infusing. Needs assessed and attended to. Safety measure initiated and call light within reached.
[2021-07-06] MEDS: ATORVASTATIN 10 MG TABLET PO SCH (20:01)
[2021-07-06] MEDS: AZITHROMYCIN 250 MG TABLET PO SCH (20:01)
[2021-07-06 20:20] VITALS: BP 104/54
[2021-07-07] MEDS: VANCOMYCIN IV 1,000 MG in IV DEXTROSE 5% 250 ML IV SCH (01:56)
[2021-07-07 04:20] VITALS: BP 115/57
[2021-07-07] MEDS: METRONIDAZOLE 500 MG TABLET PO SCH ×3 (05:09→21:10)
[2021-07-07] MEDS: MEROPENEM 0.5 G in IV NORMAL SALINE 50 ML IV SCH ×3 (05:09→21:51)
--- NOTE | 2021-07-07 06:12 | NUR ---
Patient slept well last night. AAOx4. In no acute distress. Denies any SOB. [place] 1 tab given PO for complain of rib cage pain and effective. Right upper arm midline intact and patent. IVF infusing. No adverse effect noted from IV and PO antibiotics. Needs attended to and met. Safety measure maintained and call light within reached.
[2021-07-07] MEDS: DEXILANT 60 MG PO SCH (06:23)
[2021-07-07] MEDS: BLOOD SUGAR DIAGNOSTIC 1 EACH STRIP VI SCH ×4 (06:31→20:54)
[2021-07-07 06:58] LABS: BILIRUBIN,TOTAL 0.3 mg/dL (0.2-1.0); CREATININE 1.2 mg/dL (0.6-1.3); POTASSIUM 3.4 mmol/L (3.5-5.1); TOTAL PROTEIN, SERUM 5.3 g/dL (6.4-8.2)
[2021-07-07 07:20] LABS: HEMATOCRIT 22.3 % (31.2-41.9); MEAN CORPUSCULAR HEMOGLOBIN 30.5 uug (24.7-32.8); MEAN CORPUSCULAR VOLUME 90.3 fL (75.5-95.3); PLATELET COUNT (AUTO) 385 K/uL (179-408)
[2021-07-07] MEDS: SODIUM BICARBONATE 8.4% 50 MEQ in IV 1/2NS 1000 ML 1,000 ML IV PRN (08:02)
[2021-07-07] MEDS: METOPROLOL SUCCINATE XL 50 MG TAB.SR.24H PO SCH (08:49)
[2021-07-07] MEDS: FERROUS SULFATE 325 MG TABEC PO SCH ×3 (08:49→17:04)
[2021-07-07] MEDS: buPROPion SR 150 MG TABLET.SA PO SCH (08:49)
[2021-07-07] MEDS: TOPIRAMATE 100 MG TABLET PO SCH (08:49)
[2021-07-07] MEDS: ONDANSETRON 4 MG/2 ML VIAL IV PRN (08:49)
[2021-07-07] MEDS: CALCITRIOL 0.25 MCG CAPSULE PO SCH (08:50)
[2021-07-07] MEDS: ARIPIPRAZOLE 2 MG TABLET PO SCH (08:50)
[2021-07-07] MEDS: INSULIN GLARGINE,HUM 300 UNITS/3 ML CARTRIDGE SQ SCH ×2 (08:59→21:09)
[2021-07-07] MEDS ORDERED: POTASSIUM CHLORIDE 20 MEQ TAB.PRT.SR PO ONE (10:00)
[2021-07-07 11:27] VITALS: BP 147/62
[2021-07-07] MEDS: PROCHLORPERAZINE EDISYLATE 10 MG/2 ML VIAL IV PRN (11:29)
[2021-07-07] MEDS: INSULIN REGULAR, HUMAN 300 UNIT/3 ML VIAL SQ PRN (11:29)
[2021-07-07 11:31] VITALS: BP 122/59
[2021-07-07] MEDS ORDERED: LOPERAMIDE HCL 2 MG CAPSULE PO ONE (13:30)
[2021-07-07 15:16] VITALS: BP 117/60
[2021-07-07] MEDS ORDERED: GLUCERNA SHAKE VANILLA 237 ML CAN PO PRN (16:00)
[2021-07-07] MEDS: LOPERAMIDE HCL 2 MG CAPSULE PO PRN ×2 (18:40→23:59)
[2021-07-07 20:20] VITALS: BP 143/53
[2021-07-07] MEDS: INSULIN REGULAR, HUMAN 300 UNITS/3 ML VIAL SQ PRN (20:55)
[2021-07-07] MEDS: ATORVASTATIN 10 MG TABLET PO SCH (20:58)
[2021-07-07] MEDS: AZITHROMYCIN 250 MG TABLET PO SCH (20:58)
[2021-07-07] MEDS: HYDROCODONE/APAP 5-325MG TABLET PO PRN (21:36)
[2021-07-08 04:20] VITALS: BP 102/57
[2021-07-08] MEDS: MEROPENEM 0.5 G in IV NORMAL SALINE 50 ML IV SCH ×2 (05:52→14:11)
[2021-07-08] MEDS: METRONIDAZOLE 500 MG TABLET PO SCH ×2 (06:04→14:11)
[2021-07-08] MEDS: DEXILANT 60 MG PO SCH (06:04)
[2021-07-08] MEDS: LOPERAMIDE HCL 2 MG CAPSULE PO PRN (06:15)
[2021-07-08] MEDS: BLOOD SUGAR DIAGNOSTIC 1 EACH STRIP VI SCH ×3 (06:21→16:30)
[2021-07-08 06:41] LABS: HEMATOCRIT 24.8 % (31.2-41.9); MEAN CORPUSCULAR HEMOGLOBIN 29.6 uug (24.7-32.8); MEAN CORPUSCULAR VOLUME 91.8 fL (75.5-95.3); PLATELET COUNT (AUTO) 434 K/uL (179-408)
[2021-07-08 06:58] LABS: BILIRUBIN,TOTAL 0.3 mg/dL (0.2-1.0); CREATININE 1.2 mg/dL (0.6-1.3); POTASSIUM 4.3 mmol/L (3.5-5.1); TOTAL PROTEIN, SERUM 5.8 g/dL (6.4-8.2)
[2021-07-08 08:00] VITALS: BP 110/53
[2021-07-08] MEDS ORDERED: VANCOMYCIN IV 1,000 MG in IV DEXTROSE 5% 250 ML IV SCH (08:00)
[2021-07-08] MEDS: INSULIN GLARGINE,HUM 300 UNITS/3 ML CARTRIDGE SQ SCH (08:24)
[2021-07-08] MEDS: ARIPIPRAZOLE 2 MG TABLET PO SCH (08:49)
[2021-07-08] MEDS: TOPIRAMATE 100 MG TABLET PO SCH (08:50)
[2021-07-08] MEDS: CALCITRIOL 0.25 MCG CAPSULE PO SCH (08:50)
[2021-07-08] MEDS: METOPROLOL SUCCINATE XL 50 MG TAB.SR.24H PO SCH (08:51)
[2021-07-08] MEDS: FERROUS SULFATE 325 MG TABEC PO SCH ×4 (08:51→17:26)
[2021-07-08] MEDS: buPROPion SR 150 MG TABLET.SA PO SCH (08:51)
[2021-07-08] MEDS: ONDANSETRON 4 MG/2 ML VIAL IV PRN ×2 (08:53→17:26)
[2021-07-08] MEDS: HYDROCODONE/APAP 5-325MG TABLET PO PRN (09:25)
[2021-07-08 12:00] VITALS: BP 111/59
[2021-07-08] MEDS: INSULIN REGULAR, HUMAN 300 UNIT/3 ML VIAL SQ PRN ×2 (12:29→17:38)
[2021-07-08] MEDS: PROCHLORPERAZINE EDISYLATE 10 MG/2 ML VIAL IV PRN (14:45)
[2021-07-08 16:36] VITALS: BP 118/62
--- NOTE | 2021-07-08 18:20 | NUR ---
Pt is a/o x 4. Pt has been nauseated throughout the day, provided PRN medications. Nausea improved upon transfer. All comfort measures and medications given to pt prior to transfer. Pt is being discharged/ transferred to [facility]. Report given to Alexys. Pt was picked up by [facility] ambulance for transfer. Discharge information and education given to pt, all belongings at hand. Home medications picked up and given to pt. MD notified of transfer at 1630, no discharge orders were inputted. Last discharge summary was written for 07/06/21 as stable for transfer to [facility].
== END 2021-07-08 18:20 | disposition short-term general hospital (02) | DRG 871 ==
LOC: ER 13:50 → TELE3 19:14 → MEDSURG3 06-28 09:57 → TELE3 07-02 09:19 → MEDSURG3 07-05 11:33
PROVIDERS: ADMIT Internal Medicine; ATTEND Internal Medicine
PROC: 05HB33Z Insertion of Infusion Device into Right Basilic Vein, Percutaneous Approach (ICD-10-PCS; 2021-06-28)
PROC: 30233N1 Transfusion of Nonautologous Red Blood Cells into Peripheral Vein, Percutaneous Approach (ICD-10-PCS; 2021-07-01)
PROC: 0FB23ZX Excision of Left Lobe Liver, Percutaneous Approach, Diagnostic (ICD-10-PCS; principal; 2021-07-02)
DX: A41.9 Sepsis, unspecified organism (principal); N17.0 Acute kidney failure with tubular necrosis; K75.0 Abscess of liver; N39.0 Urinary tract infection, site not specified; Z16.11 Resistance to penicillins; Z16.23 Resistance to quinolones and fluoroquinolones; Z16.29 Resistance to other single specified antibiotic; M84.48XA Pathological fracture, other site, initial encounter for fracture; E87.2 Acidosis; E46 Unspecified protein-calorie malnutrition; N13.30 Unspecified hydronephrosis; E86.0 Dehydration; G35 Multiple sclerosis; E10.65 Type 1 diabetes mellitus with hyperglycemia; R16.0 Hepatomegaly, not elsewhere classified; B96.20 Unspecified Escherichia coli [E. coli] as the cause of diseases classified elsewhere; I12.9 Hypertensive chronic kidney disease with stage 1 through stage 4 chronic kidney disease, or unspecified chronic kidney disease; N18.9 Chronic kidney disease, unspecified; Z79.4 Long term (current) use of insulin; S22.49XD Multiple fractures of ribs, unspecified side, subsequent encounter for fracture with routine healing; V49.9XXD Car occupant (driver) (passenger) injured in unspecified traffic accident, subsequent encounter; Z20.822 Contact with and (suspected) exposure to COVID-19; Z79.899 Other long term (current) drug therapy; Z80.3 Family history of malignant neoplasm of breast; Z80.0 Family history of malignant neoplasm of digestive organs; Z88.1 Allergy status to other antibiotic agents; Z87.891 Personal history of nicotine dependence; N64.89 Other specified disorders of breast; E87.6 Hypokalemia; I44.0 Atrioventricular block, first degree; E10.22 Type 1 diabetes mellitus with diabetic chronic kidney disease; E83.51 Hypocalcemia; D50.9 Iron deficiency anemia, unspecified
CPT/HCPCS: 36415; 70030-TC; 70553; 71045; 71250; 76641-TC; 78306; 82105; 82378; 82747; 82784; 83550; 83605; 83735; 84100; 84155; 84165; 84443; 85014; 85025; 85730; 86300; 86301; 86334; 86625; 86706; 86803; 86850; 86900; 86901; 86920; 87040; 87046; 87070; 87077; 87086; 87340; 87400; 87806; 88313-TC; 93005; 93307; A4663; A9503; A9575; C9113; G0378; J0696; J0780; J1200; J1815; J2185; J2250; J2405; J2765; J3010; J3370; J3480; J3490; J7030; J7040; J7050; J7060; P9016; P9047; Q0144

== ENCOUNTER 2022-01-29 09:12 | Emergency (ER) | payer OTHER ==
[~2022-01-29] VITALS: Ht 162.6 cm; Wt 52.2 kg
[~2022-01-29 09:12] MED LIST changes: +CALC0.253 PO; -DEXILANT PO; +DEXL60CA3 PO; +ESTR10TA4 VG; -GLAT20SY SQ; +GLAT40SY3 SQ
--- NOTE | 2022-01-29 09:39 | NUR ---
DR MATA AT BEDSIDE FOR EVALUATION
[2022-01-29] MEDS ORDERED: IV NORMAL SALINE 500 ML BAG IV ONE (09:45)
[2022-01-29 09:50] LABS: HEMATOCRIT 35.3 % (31.2-41.9); MEAN CORPUSCULAR HEMOGLOBIN 31.3 uug (24.7-32.8); MEAN CORPUSCULAR VOLUME 94.4 fL (75.5-95.3); PLATELET COUNT (AUTO) 360 K/uL (179-408)
[2022-01-29 09:59] LABS: CREATININE 1.5 mg/dL (0.6-1.3); POTASSIUM 3.6 mmol/L (3.5-5.1)
[2022-01-29 10:04] LABS: BILIRUBIN,DIRECT 0.1 mg/dL (0.0-0.2); BILIRUBIN,TOTAL 0.2 mg/dL (0.2-1.0); TOTAL PROTEIN, SERUM 6.9 g/dL (6.4-8.2)
[2022-01-29] MEDS ORDERED: ONDA4TAB5 PO (10:38)
[2022-01-29] MEDS ORDERED: ONDANSETRON ODT 4 MG TAB.RAPDIS ONE (10:39)
[2022-01-29] MEDS ORDERED: ONDANSETRON ODT 4 MG TAB.RAPDIS SL ONE (10:45)
--- NOTE | 2022-01-29 10:50 | NUR ---
D/C INSTRUCTIONS GIVEN TO THE PT ADOLFO. PT WAS D/C'd TO HOME.
== END 2022-01-29 10:57 | disposition home or self-care (01) ==
LOC: ER 09:12
DX: E10.649 Type 1 diabetes mellitus with hypoglycemia without coma (principal); E10.22 Type 1 diabetes mellitus with diabetic chronic kidney disease; N18.9 Chronic kidney disease, unspecified; Z79.4 Long term (current) use of insulin; D72.829 Elevated white blood cell count, unspecified; G35 Multiple sclerosis; Z80.3 Family history of malignant neoplasm of breast; Z80.0 Family history of malignant neoplasm of digestive organs; I44.0 Atrioventricular block, first degree; Z88.1 Allergy status to other antibiotic agents; Z88.5 Allergy status to narcotic agent
CPT/HCPCS: 36415; 80048; 80076; 82962; 85025; 96360; 99284; J7040; A4663; Q0162

== ENCOUNTER 2022-08-14 06:20 | Emergency (ER) | payer MEDICARE, OTHER ==
[~2022-08-14 06:20] MED LIST changes: +ONDA4TAB5 PO
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
--- NOTE | 2022-08-14 06:28 | NUR ---
Patient left without being seen by ER physician.
== END 2022-08-14 06:36 | disposition left against medical advice (07) ==
LOC: ER 06:24
DX: Z53.21 Procedure and treatment not carried out due to patient leaving prior to being seen by health care provider (principal)